=== PATIENT | female | born 1960 | race Asian ===

== ENCOUNTER → 2016-09-30 | Outpatient (CLI) | payer BC, OTHER ==
[~2016-09-30] MED LIST: FEXO180T PO; HYDR25TA4 PO; LORA10CA PO; SIMV20TA2 PO
[2016-09-30 11:49] LABS: KETONES,URINE NEGATIVE (NEGATIVE); LEUKOCYTE ESTERASE ,URINE TRACE (NEGATIVE); PH,URINE 6.5 (5.0-8.0)
[2016-09-30 11:52] LABS: ADD UA MICROSCOPIC YES
[2016-09-30 11:59] LABS: ADD URINE CULTURE YES
== END ==
LOC: LAB 09:40
PROVIDERS: ATTEND Legal Medicine
DX: R30.0 Dysuria (principal)
CPT/HCPCS: 81000-TC; 87086-TC; 87186-TC

== ENCOUNTER 2016-10-03 09:05 | Outpatient (CLI) | payer BC, OTHER | END 2016-10-03 23:59 | disposition home or self-care (01) | LOC: US 09:05 | PROVIDERS: ATTEND Family Medicine | DX: N92.0 Excessive and frequent menstruation with regular cycle (principal); R31.9 Hematuria, unspecified | CPT/HCPCS: 76770-TC; 76856-TC ==

== ENCOUNTER 2016-12-23 06:53 | Outpatient (CLI) | payer BC, OTHER | END 2016-12-23 23:59 | disposition home or self-care (01) | LOC: LAB 06:53 | PROVIDERS: ATTEND Legal Medicine | DX: Z75.3 Unavailability and inaccessibility of health-care facilities (principal) ==

== ENCOUNTER 2017-01-16 08:30 | Outpatient (CLI) | payer BC, OTHER | END 2017-01-16 23:59 | disposition home or self-care (01) | LOC: RAD 08:30 | PROVIDERS: ATTEND Otolaryngology | DX: E04.1 Nontoxic single thyroid nodule (principal); R13.14 Dysphagia, pharyngoesophageal phase | CPT/HCPCS: 76536-TC ==

== ENCOUNTER 2017-01-17 09:24 | Outpatient (CLI) | payer BC, OTHER | END 2017-01-17 23:59 | disposition home or self-care (01) | LOC: RAD 09:24 | PROVIDERS: ATTEND Otolaryngology | DX: R13.14 Dysphagia, pharyngoesophageal phase (principal) | CPT/HCPCS: 74230-TC ==

== ENCOUNTER 2017-02-26 09:59 | Emergency (ER) | payer BC, OTHER ==
[~2017-02-26] VITALS: Ht 162.6 cm; Wt 91.6 kg
[2017-02-26 10:02] VITALS: BP 149/101
== END 2017-02-26 10:38 | disposition home or self-care (01) ==
LOC: ER 10:00
DX: S09.90XA Unspecified injury of head, initial encounter (principal); S50.01XA Contusion of right elbow, initial encounter; M54.5 Low back pain; I10 Essential (primary) hypertension; W01.198A Fall on same level from slipping, tripping and stumbling with subsequent striking against other object, initial encounter; Y92.89 Other specified places as the place of occurrence of the external cause; Y93.89 Activity, other specified; Y99.8 Other external cause status
CPT/HCPCS: 99281; A4606; Z7610; Z7502

== ENCOUNTER 2017-08-03 09:29 | Outpatient (CLI) | payer BC ==
[2017-08-03 10:35] LABS: BASOPHILS % (AUTO) 0.5 % (0.0-2.0); EOSINOPHILS # (AUTO) 0.5 /CMM (0.0-0.7); EOSINOPHILS % (AUTO) 5.3 % (0.0-6.0); HEMATOCRIT 44 % (33-45); HEMOGLOBIN 13.4 g/dL (11.5-14.8); LYMPHOCYTES # (AUTO) 2.8 /CMM (0.8-4.8); LYMPHOCYTES % (AUTO) 28.6 % (20.0-44.0); MEAN CORPUSCULAR HEMOGLOBIN 20 PG (26.0-33.0); MEAN CORPUSCULAR HGB CONC 31 g/dl (31.0-36.0); MEAN CORPUSCULAR VOLUME 67 fL (82-100); MONOCYTES # (AUTO) 0.5 /CMM (0.1-1.30); MONOCYTES % (AUTO) 5.4 % (2.0-12.0); NEUTROPHILS # (AUTO) 5.8 /CMM (1.8-8.9); NEUTROPHILS % (AUTO) 60.2 % (43.0-81.0); PLATELET COUNT (AUTO) 207 /CMM (150-450); RDW COEFFICIENT OF VARIATION 16.1 (11.5-15.0); WHITE BLOOD COUNT (AUTO) 9.6 K/uL (4.3-11.0)
[2017-08-03 10:37] LABS: APPEARANCE,URINE CLEAR (CLEAR); BILIRUBIN,URINE NEGATIVE (NEGATIVE); BLOOD, URINE 2+ Ery/uL (NEGATIVE); COLOR,URINE YELLOW (YELLOW); KETONES,URINE NEGATIVE (NEGATIVE); LEUKOCYTE ESTERASE ,URINE TRACE (NEGATIVE); NITRITE, URINE POSITIVE (NEGATIVE); PROTEIN,URINE 2+ mg/dl (NEGATIVE); UGLUCOSE NEGATIVE (NEGATIVE); UROBILINOGEN,URINE 0.2 EU/dL (0.2)
[2017-08-03 10:45] LABS: BACTERIA,URINE Moderate /HPF (None Seen); SQUAMOUS EPITHELIAL CELL,UR Few /HPF (None Seen)
[2017-08-03 10:58] LABS: ALBUMIN 3.4 g/dL (3.4-5.0); BILIRUBIN,TOTAL 0.6 mg/dL (0.2-1.0); CALCIUM, SERUM 9.3 mg/dL (8.5-10.1); POTASSIUM 3.6 mmol/L (3.5-5.1); TOTAL PROTEIN, SERUM 8.2 g/dL (6.4-8.2)
[2017-08-03 11:00] LABS: FREE T4 (FREE THYROXINE) 1.02 ng/dL (0.76-1.46); URIC ACID 8.2 mg/dL (2.6-7.2)
[2017-08-03 11:50] LABS: EOSINOPHILS % (MANUAL) 5 % (0-4); LYMPHOCYTES % (MANUAL) 33 % (16-48); MONOCYTES % (MANUAL) 8 % (0-11.0); NEUTROPHILS % (MANUAL) 54 (42-76)
[2017-08-03 14:30] LABS: THYROID STIMULATING HORMONE 2.394 uIU/mL (0.358-3.74)
== END 2017-08-03 23:59 | disposition home or self-care (01) ==
LOC: LAB 09:29
PROVIDERS: ATTEND Legal Medicine
DX: M25.761 Osteophyte, right knee (principal); E03.9 Hypothyroidism, unspecified; I10 Essential (primary) hypertension; D64.9 Anemia, unspecified
CPT/HCPCS: 36415; 73564-TC; 80053-TC; 80061-TC; 81000-TC; 82306; 82728-TC; 82746; 83540-TC; 84439-TC; 84443-TC; 84550-TC; 85025-TC; 87086-TC; 87186-TC

== ENCOUNTER 2018-05-23 10:57 | Outpatient (CLI) | payer BC | END 2018-05-23 23:59 | disposition home or self-care (01) | LOC: RAD 10:57 | PROVIDERS: ATTEND Legal Medicine | DX: M25.512 Pain in left shoulder (principal); I10 Essential (primary) hypertension | CPT/HCPCS: 73030-TC ==

== ENCOUNTER 2018-08-24 10:33 | Outpatient (CLI) | payer BC ==
[2018-08-24 11:00] LABS: APPEARANCE,URINE SL CLOUDY (CLEAR); BILIRUBIN,URINE NEGATIVE (NEGATIVE); BLOOD, URINE 1+ Ery/uL (NEGATIVE); COLOR,URINE YELLOW (YELLOW); KETONES,URINE NEGATIVE (NEGATIVE); LEUKOCYTE ESTERASE ,URINE TRACE (NEGATIVE); NITRITE, URINE POSITIVE (NEGATIVE); PROTEIN,URINE 2+ mg/dl (NEGATIVE); UGLUCOSE NEGATIVE (NEGATIVE); UROBILINOGEN,URINE 0.2 EU/dL (0.2)
[2018-08-24 11:16] LABS: BACTERIA,URINE Many /HPF (None Seen); SQUAMOUS EPITHELIAL CELL,UR Few /HPF (None Seen)
== END 2018-08-24 23:59 | disposition home or self-care (01) ==
LOC: LAB 10:33
PROVIDERS: ATTEND Legal Medicine
DX: N39.0 Urinary tract infection, site not specified (principal)
CPT/HCPCS: 81000-TC; 87086-TC; 87186-TC

== ENCOUNTER 2018-09-21 07:38 | Outpatient (CLI) | payer BC | END 2018-09-21 23:59 | disposition home or self-care (01) | LOC: MRI 07:38 | PROVIDERS: ATTEND Student in an Organized Health Care Education/Training Program | DX: S83.242A Other tear of medial meniscus, current injury, left knee, initial encounter (principal); M22.42 Chondromalacia patellae, left knee; X58.XXXA Exposure to other specified factors, initial encounter; Y93.89 Activity, other specified; Y92.89 Other specified places as the place of occurrence of the external cause; Y99.8 Other external cause status | CPT/HCPCS: 73721-TC ==

== ENCOUNTER 2018-10-09 08:12 | Outpatient (CLI) | payer BC | END 2018-10-09 23:59 | disposition home or self-care (01) | LOC: CT 08:12 | DX: N39.0 Urinary tract infection, site not specified (principal); R31.0 Gross hematuria; K83.8 Other specified diseases of biliary tract; K42.9 Umbilical hernia without obstruction or gangrene; M47.817 Spondylosis without myelopathy or radiculopathy, lumbosacral region; Z90.49 Acquired absence of other specified parts of digestive tract | CPT/HCPCS: 88305-TC; 88312-TC ==

== ENCOUNTER 2019-01-15 10:40 | Outpatient (CLI) | payer BC | END 2019-01-15 23:59 | disposition home or self-care (01) | LOC: WOU 10:40 | PROVIDERS: ATTEND Podiatrist Foot & Ankle Surgery | DX: S93.402D Sprain of unspecified ligament of left ankle, subsequent encounter (principal); X58.XXXD Exposure to other specified factors, subsequent encounter; R60.0 Localized edema | CPT/HCPCS: G0463 ==

== ENCOUNTER 2019-01-23 13:00 | Outpatient (CLI) | payer BC | END 2019-01-23 23:59 | disposition home or self-care (01) | LOC: WOU 13:00 | PROVIDERS: ATTEND Podiatrist Foot & Ankle Surgery | DX: S93.402D Sprain of unspecified ligament of left ankle, subsequent encounter (principal); X58.XXXD Exposure to other specified factors, subsequent encounter; R60.0 Localized edema; I10 Essential (primary) hypertension; M19.90 Unspecified osteoarthritis, unspecified site | CPT/HCPCS: G0463 ==

== ENCOUNTER 2019-06-07 10:45 | Outpatient (CLI) | payer BC | END 2019-06-07 23:59 | disposition home or self-care (01) | LOC: WOU 10:45 | PROVIDERS: ATTEND Podiatrist Foot & Ankle Surgery | DX: L03.115 Cellulitis of right lower limb (principal); R60.0 Localized edema; M77.8 Other enthesopathies, not elsewhere classified; M76.71 Peroneal tendinitis, right leg | CPT/HCPCS: 73630-TC; G0463 ==

== ENCOUNTER 2019-06-11 08:45 | Outpatient (CLI) | payer BC | END 2019-06-11 23:59 | disposition home or self-care (01) | LOC: WOU 08:45 | PROVIDERS: ATTEND Podiatrist Foot & Ankle Surgery | DX: L84 Corns and callosities (principal); Q66.229 Congenital metatarsus adductus, unspecified foot | CPT/HCPCS: G0463 ==

== ENCOUNTER 2019-08-15 08:21 | Outpatient (CLI) | payer BC ==
[2019-08-15 09:56] LABS: BASOPHILS # (AUTO) 0.1 /CMM (0.0-0.2); BASOPHILS % (AUTO) 0.7 % (0.0-2.0); EOSINOPHILS % (AUTO) 3.2 % (0.0-6.0); HEMATOCRIT 45 % (33-45); LYMPHOCYTES # (AUTO) 2.6 /CMM (0.8-4.8); LYMPHOCYTES % (AUTO) 28.6 % (20.0-44.0); MEAN CORPUSCULAR HGB CONC 31 g/dl (31.0-36.0); MEAN CORPUSCULAR VOLUME 67 fL (82-100); MONOCYTES # (AUTO) 0.6 /CMM (0.1-1.30); MONOCYTES % (AUTO) 6.6 % (2.0-12.0); NEUTROPHILS # (AUTO) 5.6 /CMM (1.8-8.9); NEUTROPHILS % (AUTO) 60.9 % (43.0-81.0); PLATELET COUNT (AUTO) 221 /CMM (150-450); RED BLOOD CELL COUNT(AUTO) 6.69 MIL/uL (4.0-5.2); WHITE BLOOD COUNT (AUTO) 9.3 K/uL (4.3-11.0)
[2019-08-15 09:58] LABS: APPEARANCE,URINE CLEAR (CLEAR); BILIRUBIN,URINE NEGATIVE (NEGATIVE); BLOOD, URINE TRACE-INTA Ery/uL (NEGATIVE); COLOR,URINE YELLOW (YELLOW); KETONES,URINE NEGATIVE (NEGATIVE); LEUKOCYTE ESTERASE ,URINE NEGATIVE (NEGATIVE); NITRITE, URINE NEGATIVE (NEGATIVE); PROTEIN,URINE >=300 mg/dl (NEGATIVE); UGLUCOSE NEGATIVE (NEGATIVE); UROBILINOGEN,URINE 0.2 EU/dL (0.2)
[2019-08-15 10:07] LABS: BACTERIA,URINE None seen /HPF (None Seen); RBC,URINE NONE SEEN /HPF (0-2); SQUAMOUS EPITHELIAL CELL,UR None Seen /HPF (None Seen); WBC,URINE NONE SEEN /HPF (0-3)
[2019-08-15 10:08] LABS: ALBUMIN 3.4 g/dL (3.4-5.0); BILIRUBIN,TOTAL 0.6 mg/dL (0.2-1.0); CALCIUM, SERUM 9.4 mg/dL (8.5-10.1); CREATININE 0.9 mg/dL (0.6-1.3); POTASSIUM 3.5 mmol/L (3.5-5.1); TOTAL PROTEIN, SERUM 8.3 g/dL (6.4-8.2)
[2019-08-15 10:18] LABS: THYROID STIMULATING HORMONE 1.794 uIU/mL (0.358-3.74); URIC ACID 8.3 mg/dL (2.6-7.2)
[2019-08-16 08:06] LABS: FOLIC ACID 13.1 ng/mL (>3.0)
== END 2019-08-15 23:59 | disposition home or self-care (01) ==
LOC: LAB 08:21
PROVIDERS: ATTEND Legal Medicine
DX: Z00.00 Encounter for general adult medical examination without abnormal findings (principal); I70.0 Atherosclerosis of aorta; E11.9 Type 2 diabetes mellitus without complications; I10 Essential (primary) hypertension; E03.9 Hypothyroidism, unspecified; D64.9 Anemia, unspecified; E55.9 Vitamin D deficiency, unspecified
CPT/HCPCS: 36415; 71046; 80053-TC; 80061-TC; 81000-TC; 82306; 82728-TC; 83540-TC; 84439-TC; 84443-TC; 84550-TC; 85025-TC

== ENCOUNTER 2020-08-19 07:49 | Emergency (ER) | payer BC, OTHER ==
[~2020-08-19] VITALS: Ht 162.6 cm; Wt 91.6 kg
[2020-08-19 08:02] VITALS: BP 156/100
--- NOTE | 2020-08-19 09:23 | NUR ---
COVID PCR SWAB IN BUT PATIENT IS NO LONGER AVAILABLE
== END 2020-08-19 09:24 | disposition left against medical advice (07) ==
LOC: ER 07:54
DX: R05 Cough (principal); Z20.828 Contact with and (suspected) exposure to other viral communicable diseases; I10 Essential (primary) hypertension; J45.909 Unspecified asthma, uncomplicated; Z90.49 Acquired absence of other specified parts of digestive tract; Z79.899 Other long term (current) drug therapy
CPT/HCPCS: 99283; C9803; U0003

== ENCOUNTER 2020-08-19 08:16 | Outpatient (CLI) | payer BC ==
[2020-08-19 10:47] LABS: BASOPHILS # (AUTO) 0.1 /CMM (0.0-0.2); BASOPHILS % (AUTO) 0.9 % (0.0-2.0); EOSINOPHILS % (AUTO) 3.9 % (0.0-6.0); HEMATOCRIT 44 % (33-45); HEMOGLOBIN 13.6 g/dL (11.5-14.8); LYMPHOCYTES # (AUTO) 2.6 /CMM (0.8-4.8); LYMPHOCYTES % (AUTO) 30.4 % (20.0-44.0); MEAN CORPUSCULAR HGB CONC 31 g/dl (31.0-36.0); MEAN CORPUSCULAR VOLUME 68 fL (82-100); MONOCYTES # (AUTO) 0.6 /CMM (0.1-1.30); MONOCYTES % (AUTO) 7.4 % (2.0-12.0); NEUTROPHILS # (AUTO) 4.8 /CMM (1.8-8.9); NEUTROPHILS % (AUTO) 57.4 % (43.0-81.0); PLATELET COUNT (AUTO) 221 /CMM (150-450); RED BLOOD CELL COUNT(AUTO) 6.51 MIL/uL (4.0-5.2); WHITE BLOOD COUNT (AUTO) 8.4 K/uL (4.3-11.0)
[2020-08-19 11:12] LABS: BILIRUBIN,URINE NEGATIVE (NEGATIVE); BLOOD, URINE MODERATE Ery/uL (NEGATIVE); COLOR,URINE YELLOW (YELLOW); LEUKOCYTE ESTERASE ,URINE NEGATIVE (NEGATIVE); NITRITE, URINE NEGATIVE (NEGATIVE); PROTEIN,URINE 100 mg/dl (NEGATIVE); UGLUCOSE NEGATIVE (NEGATIVE); UROBILINOGEN,URINE 0.2 EU/dL (0.2)
[2020-08-19 12:04] LABS: WBC,URINE 0-2 /HPF (0-3)
[2020-08-19 12:05] LABS: BACTERIA,URINE None seen /HPF (None Seen); SQUAMOUS EPITHELIAL CELL,UR Few /HPF (None Seen)
[2020-08-19 14:51] LABS: ALBUMIN 3.5 g/dL (3.4-5.0); BILIRUBIN,TOTAL 0.7 mg/dL (0.2-1.0); CALCIUM, SERUM 9.6 mg/dL (8.5-10.1); POTASSIUM 3.6 mmol/L (3.5-5.1)
[2020-08-19 22:49] LABS: THYROID STIMULATING HORMONE 2.722 uIU/mL (0.358-3.74)
[2020-08-20 08:04] LABS: FOLIC ACID 9.3 ng/mL (>3.0)
== END 2020-08-19 23:59 | disposition home or self-care (01) ==
LOC: RAD 08:16
PROVIDERS: ATTEND Legal Medicine
DX: S22.009A Unspecified fracture of unspecified thoracic vertebra, initial encounter for closed fracture (principal); I10 Essential (primary) hypertension; E11.9 Type 2 diabetes mellitus without complications; E03.9 Hypothyroidism, unspecified; D64.9 Anemia, unspecified; E55.9 Vitamin D deficiency, unspecified; M47.814 Spondylosis without myelopathy or radiculopathy, thoracic region; Z00.00 Encounter for general adult medical examination without abnormal findings; X58.XXXA Exposure to other specified factors, initial encounter; Y93.89 Activity, other specified; Y92.89 Other specified places as the place of occurrence of the external cause; Y99.8 Other external cause status
CPT/HCPCS: 36415; 71046; 80053-TC; 80061-TC; 81001; 82306; 82728-TC; 83540-TC; 84439-TC; 84443-TC; 84550-TC; 85025-TC

== ENCOUNTER 2020-11-26 05:43 | Day surgery (SDC) | payer BC ==
[2020-11-26] VITALS (7 sets, daily range): BP systolic 113–143; BP diastolic 73–85
[~2020-11-26] VITALS: Ht 160 cm; Wt 94.8 kg
[2020-11-26] MEDS ORDERED: IODIXANOL 150 ML IV ONE (05:53)
[2020-11-26] MEDS ORDERED: IV SET PRIMARY PUMP SET 1 EA INFUS.SET MC ONE (05:53)
[2020-11-26] MEDS ORDERED: IV NS 0.9% 1,000 ML ONE (05:53)
[2020-11-26] MEDS ORDERED: LIDOCAINE HCL/MPF 1% 30 ML VIAL IJ ONE (05:53)
[2020-11-26 06:19] LABS: BASOPHILS # (AUTO) 0.1 /CMM (0.0-0.2); BASOPHILS % (AUTO) 0.6 % (0.0-2.0); EOSINOPHILS % (AUTO) 0.1 % (0.0-6.0); HEMATOCRIT 47 % (33-45); HEMOGLOBIN 14.7 g/dL (11.5-14.8); LYMPHOCYTES # (AUTO) 1.3 /CMM (0.8-4.8); LYMPHOCYTES % (AUTO) 13.4 % (20.0-44.0); MEAN CORPUSCULAR HGB CONC 31 g/dl (31.0-36.0); MEAN CORPUSCULAR VOLUME 67 fL (82-100); MONOCYTES # (AUTO) 0.1 /CMM (0.1-1.30); MONOCYTES % (AUTO) 0.7 % (2.0-12.0); NEUTROPHILS % (AUTO) 85.2 % (43.0-81.0); PLATELET COUNT (AUTO) 215 /CMM (150-450); RED BLOOD CELL COUNT(AUTO) 6.97 MIL/uL (4.0-5.2); WHITE BLOOD COUNT (AUTO) 9.4 K/uL (4.3-11.0)
[2020-11-26 06:28] LABS: CALCIUM, SERUM 9.2 mg/dL (8.5-10.1); CREATININE 1.1 mg/dL (0.6-1.3); POTASSIUM 3.2 mmol/L (3.5-5.1)
[2020-11-26 06:34] LABS: ALBUMIN 3.3 g/dL (3.4-5.0); BILIRUBIN,TOTAL 0.4 mg/dL (0.2-1.0); TOTAL PROTEIN, SERUM 8.8 g/dL (6.4-8.2)
[2020-11-26] MEDS ORDERED: FENTANYL PF 100MCG/2ML AMPUL ONE (07:21)
[2020-11-26] MEDS ORDERED: MIDAZOLAM HCL 2 MG/2ML VIAL ONE (07:22)
[2020-11-26] MEDS ORDERED: NITROGLYCERIN ICAR 1,000 MCG/10 ML VIAL ICAR ONE (07:26)
--- NOTE | 2020-11-26 08:44 | NUR ---
RN NOTES PT TRANSFERRED TO UNIT VIA STRETCHER FROM CARDIAC LAB S/P CARDIAC CATHETERIZATION BY DR MONTOYA ACCOMPANIED BY URSULA NOVOA AND JOSH. PT AWAKE, A/O X4. ABLE TO MAKE NEEDS KNOWN, DENIES PAIN OR ANY DISCOMFORTS AT THIS TIME. PT WITH TR BAND IN PLACE TO RIGHT WRIST WITH NO S/S OR ACTIVE BLEEDING NOTED AT SITE. ON ROOM AIR, TOLERATING WELL WITH SP02 OF 97% NOTED TAKEN FROM RIGHT INDEX FINGER VIA PULSE OXIMETER. V/S TAKEN, STABLE AND RECORDED. PT WITH IVF OF NS RUNNING AT 100ML/HR TO RFA G#20, NO S/S OF INFILTRATION AT SITE NOTED. SAFETY MEASURES INITIATED: BED PLACED IN LOWEST LOCKED POSITION W/ SR UP X2. CALL LIGHT WITHIN EASY REACH. WILL CONTINUE TO MONITOR.
[2020-11-26] MEDS ORDERED: LISINOPRIL (20MG) 20 MG TABLET PO SCH (09:00)
--- NOTE | 2020-11-26 09:40 | NUR ---
RN NOTES URSULA NOVOA CAME TO UNIT. PT'S V/S TAKEN, STABLE AND RECORDED. SP02 TAKEN TO RIGHT INDEX FINGER AND WAS 98%. CMS WNL. REMOVED 4ML OF AIR FROM RIGHT WRIST TR BAND, NO BLEEDING NOTED. WILL CONTINUE TO MONITOR.
--- NOTE | 2020-11-26 09:47 | NUR ---
RN NOTES PT IN BED AWAKE AND RESTING AT MODERTAE HIGH BACKREST POSITION. V/S TAKEN, STABLE AND RECORDED. SP02 TAKEN TO RIGHT INDEX FINGER AND WAS 98%. CMS WNL. REMOVED 3ML OF AIR FROM RIGHT WRIST TR BAND, NO BLEEDING NOTED. WILL CONTINUE TO MONITOR
--- NOTE | 2020-11-26 10:03 | NUR ---
RN NOTES PT IN BED AWAKE, A/O X4. V/S TAKEN, STABLE AND RECORDED. SP02 TAKEN TO RIGHT INDEX FINGER AND WAS 98%. V./S STABLE AND RECORDED. CMS WNL. REMOVED 3ML OF AIR FROM RIGHT WRIST TR BAND, NO BLEEDING NOTED. WILL CONTINUE TO MONITOR
[2020-11-26 10:13] LABS: LYMPHOCYTES % (MANUAL) 17 % (16-48); NEUTROPHILS % (MANUAL) 83 (42-76)
--- NOTE | 2020-11-26 10:17 | NUR ---
RN NOTES PT IN BED AWAKE, A/O X4. V/S TAKEN, STABLE AND RECORDED. SP02 TAKEN TO RIGHT INDEX FINGER AND WAS 98%. V./S STABLE AND RECORDED. CMS WNL. 3ML OF AIR FROM RIGHT WRIST TR BAND, NO BLEEDING NOTED. WILL CONTINUE TO MONITOR
--- NOTE | 2020-11-26 10:35 | NUR ---
RN NOTES PT AWAKE AND RESTING IN BED AT THIS TIME. NO C/O PAIN VOICED SINCE ARRIVAL TO UNIT. V/S TAKEN, STABLE AND RECORDED. O2 SAT TAKEN TO RIGHT THUMB AND WAS 98%. CMS WNL. 2ML OF AIR FROM RIGHT WRIST TR BAND REMOVED THIS TIME WITH TOTAL OF 15ML REMOVED NOW. NO BLEEDING NOTED. TR BAND REMOVED AND DRY DRESSING APPLIED TO ACCESS SITE. WILL CONTINUE TO MONITOR
--- NOTE | 2020-11-26 14:03 | NUR ---
RN DISCHARGED NOTES PT DISCHARGED HOME IN STABLE CONDITION. A/O X4. ABLE TO VERBALIZED NEEDS. V/S TAKEN, STABLE AND RECORDED. NO S/S OR ACTIVE BLEEDING ON CARDIAC CATH INSERTION SITE ON RIGHT WRIST NOTED. IV ACCESS ON RFA REMOVED, DRY PRESSURE DRESSING APPLIED TO SITE. HEALTH TEACHINGS GIVEN TO PT AND VERBALIZED UNDERSTANDING. EXIT CARE FOLDER HANDED TO PT. PT LEFT UNIT AT 1335 AMBULATORY ACCOMPANIED BY SURY PENALOZA TO [facility]. PT'S WILL DRIVE PT'S HOME. MD AND CHARGE NURSE AWARE OF DISCHARGE.
[2020-11-26] MEDS ORDERED: ATORVASTATIN 40 MG TABLET PO SCH (22:00)
== END 2020-11-26 13:40 | disposition home or self-care (01) ==
LOC: CATHLAB 05:43
PROVIDERS: ATTEND Internal Medicine
DX: R07.9 Chest pain, unspecified (principal); R06.02 Shortness of breath; I77.1 Stricture of artery
CPT/HCPCS: 36415; 80053; 85025; 85610; 85730; 87811; 93458; 99152; C1887; C9803; J1644; J2250; J3010; J3490; Q9967; G0500

== ENCOUNTER 2021-02-25 08:04 | Emergency (ER) | payer BC, OTHER ==
[~2021-02-25] VITALS: Ht 167.6 cm; Wt 90.7 kg
[~2021-02-25 08:04] MED LIST changes: -SIMV20TA2 PO
--- NOTE | 2021-02-25 08:24 | NUR ---
dr hoffman at bedside for eval.
[2021-02-25] MEDS ORDERED: MORPHINE SULFATE INJ 4 MG/ML DISP.SYRIN ONE (08:26)
[2021-02-25] MEDS ORDERED: ONDANSETRON HCL/PF 4 MG/2 ML VIAL ONE (08:26)
[2021-02-25] MEDS ORDERED: KETOROLAC TROMETHAMINE 15 MG/ML VIAL ONE (08:26)
[2021-02-25] MEDS ORDERED: MORPHINE SULFATE INJ 2 MG/ML DISP.SYRIN IV ONE (08:30)
[2021-02-25] MEDS ORDERED: IV NS 0.9% 1,000 ML BAG IV ONE (08:30)
[2021-02-25] MEDS ORDERED: KETOROLAC TROMETHAMINE INJ 30 MG/ML VIAL IV ONE (08:30)
[2021-02-25] MEDS ORDERED: ONDANSETRON HCL/PF 4 MG/2 ML VIAL IV ONE (08:30)
--- NOTE | 2021-02-25 08:30 | NUR ---
iv line started blood drawn and sent to lab.
--- NOTE | 2021-02-25 08:53 | NUR ---
pt to radiology for abdominal ct scan via [facility].
[2021-02-25 08:54] LABS: CALCIUM, SERUM 9.5 mg/dL (8.5-10.1); CREATININE 1.3 mg/dL (0.6-1.3); POTASSIUM 4.1 mmol/L (3.5-5.1)
[2021-02-25 09:02] LABS: BILIRUBIN,URINE NEGATIVE (NEGATIVE); LEUKOCYTE ESTERASE ,URINE NEGATIVE (NEGATIVE); NITRITE, URINE NEGATIVE (NEGATIVE); PH,URINE 5.5 (5.0-8.0); PROTEIN,URINE 30 mg/dl (NEGATIVE); UGLUCOSE NEGATIVE (NEGATIVE); UROBILINOGEN,URINE 0.2 EU/dL (0.2)
[2021-02-25 09:04] LABS: ALBUMIN 3.6 g/dL (3.4-5.0); BILIRUBIN,DIRECT 0.1 mg/dL (0.0-0.2); BILIRUBIN,TOTAL 0.7 mg/dL (0.2-1.0); TOTAL PROTEIN, SERUM 8.7 g/dL (6.4-8.2)
[2021-02-25 09:07] LABS: COLOR,URINE STRAW (YELLOW)
[2021-02-25 09:33] LABS: BACTERIA,URINE Many /HPF (None Seen); SQUAMOUS EPITHELIAL CELL,UR Few /HPF (None Seen)
[2021-02-25] MEDS ORDERED: NAPR-1009 PO (10:16)
[2021-02-25] MEDS ORDERED: CYCL5TAB PO (10:16)
[2021-02-25] MEDS ORDERED: FAMOTIDINE/PF INJ 20 MG/2 ML VIAL IV ONE ×2 (10:30)
[2021-02-25 10:57] VITALS: BP 145/86
--- NOTE | 2021-02-25 10:57 | NUR ---
Patient discharged to home in stable condition. Written and verbal after care instructions given. Patient verbalizes understanding of instruction.IV removed. Catheter intact and site benign. Pressure and 4x4 applied to site. No bleeding noted.
== END 2021-02-25 10:58 | disposition home or self-care (01) ==
LOC: ER 08:35
DX: M54.9 Dorsalgia, unspecified (principal); R10.84 Generalized abdominal pain; I10 Essential (primary) hypertension; Z90.49 Acquired absence of other specified parts of digestive tract; Z98.890 Other specified postprocedural states; Z91.048 Other nonmedicinal substance allergy status; Z79.899 Other long term (current) drug therapy
CPT/HCPCS: 36415; 71045; 74176; 80048; 80076; 81001; 83690; 87086; 96361; 96374; 96375; 99285; J1885; J2270; J2405; J3490; J7030

== ENCOUNTER → 2021-03-12 | Outpatient (CLI) | payer BC, OTHER ==
[~2021-03-12] MED LIST changes: +CYCL5TAB PO; +NAPR-1009 PO
== END | disposition home or self-care (01) ==
LOC: MRI 08:19
PROVIDERS: ATTEND Legal Medicine
DX: M47.816 Spondylosis without myelopathy or radiculopathy, lumbar region (principal); M51.36 Other intervertebral disc degeneration, lumbar region; M51.26 Other intervertebral disc displacement, lumbar region
CPT/HCPCS: 72148-TC

== ENCOUNTER 2021-03-25 08:10 | Outpatient (CLI) | payer BC, OTHER ==
[2021-03-25 09:42] LABS: ALBUMIN 3.6 g/dL (3.4-5.0); BILIRUBIN,TOTAL 0.6 mg/dL (0.2-1.0); CREATININE 1.3 mg/dL (0.6-1.3); POTASSIUM 3.9 mmol/L (3.5-5.1); TOTAL PROTEIN, SERUM 8.3 g/dL (6.4-8.2)
== END 2021-03-25 23:59 | disposition home or self-care (01) ==
LOC: LAB 08:10
PROVIDERS: ATTEND Legal Medicine
DX: R53.1 Weakness (principal)
CPT/HCPCS: 36415; 80053-TC

== ENCOUNTER 2021-03-26 10:33 | Outpatient (CLI) | payer BC, OTHER ==
[2021-03-26] MEDS ORDERED: GADOTERATE MEGLUMINE 5 MMOL/10 ML VIAL IV ONE (10:34)
== END 2021-03-26 23:59 | disposition home or self-care (01) ==
LOC: MRI 10:33
PROVIDERS: ATTEND Legal Medicine
DX: M47.816 Spondylosis without myelopathy or radiculopathy, lumbar region (principal); M51.27 Other intervertebral disc displacement, lumbosacral region; M48.07 Spinal stenosis, lumbosacral region
CPT/HCPCS: 72158; A9575

== ENCOUNTER 2021-10-19 08:30 | Outpatient (CLI) | payer BC, OTHER ==
[2021-10-19 09:07] LABS: BASOPHILS # (AUTO) 0.1 K/uL (0.0-0.2); EOSINOPHILS % (AUTO) 3.8 % (0.0-6.0); HEMATOCRIT 37 % (33-45); HEMOGLOBIN 11.6 g/dL (11.5-14.8); LYMPHOCYTES % (AUTO) 25.7 % (20.0-44.0); MEAN CORPUSCULAR HGB CONC 31 g/dl (31.0-36.0); MEAN CORPUSCULAR VOLUME 66 fL (82-100); MONOCYTES # (AUTO) 0.8 K/uL (0.1-1.30); MONOCYTES % (AUTO) 6.9 % (2.0-12.0); NEUTROPHILS # (AUTO) 7.2 K/uL (1.8-8.9); NEUTROPHILS % (AUTO) 62.6 % (43.0-81.0); PLATELET COUNT (AUTO) 203 K/uL (150-450); RED BLOOD CELL COUNT(AUTO) 5.66 MIL/uL (4.0-5.2); WHITE BLOOD COUNT (AUTO) 11.6 K/uL (4.3-11.0)
[2021-10-19 09:46] LABS: C-REACTIVE PROTEIN 0.8 mg/dL (0.0-0.9); FREE T4 (FREE THYROXINE) 0.93 ng/dL (0.76-1.46); THYROID STIMULATING HORMONE 2.669 uIU/mL (0.358-3.74)
[2021-10-19 09:55] LABS: ALBUMIN 3.5 g/dL (3.4-5.0); BILIRUBIN,TOTAL 0.4 mg/dL (0.2-1.0); CALCIUM, SERUM 9.8 mg/dL (8.5-10.1); CREATININE 1.3 mg/dL (0.6-1.3); POTASSIUM 3.7 mmol/L (3.5-5.1); TOTAL PROTEIN, SERUM 8.5 g/dL (6.4-8.2)
[2021-10-19 10:22] LABS: BILIRUBIN,URINE NEGATIVE (NEGATIVE); COLOR,URINE YELLOW (YELLOW); LEUKOCYTE ESTERASE ,URINE NEGATIVE (NEGATIVE); NITRITE, URINE NEGATIVE (NEGATIVE); PROTEIN,URINE 30 mg/dl (NEGATIVE); UGLUCOSE NEGATIVE (NEGATIVE); UROBILINOGEN,URINE 0.2 EU/dL (0.2)
[2021-10-19 10:28] LABS: BACTERIA,URINE None seen /HPF (None Seen); SQUAMOUS EPITHELIAL CELL,UR Few /HPF (None Seen)
== END 2021-10-19 23:59 | disposition home or self-care (01) ==
LOC: LAB 08:30
PROVIDERS: ATTEND Legal Medicine
DX: E11.22 Type 2 diabetes mellitus with diabetic chronic kidney disease (principal); N18.9 Chronic kidney disease, unspecified; E78.5 Hyperlipidemia, unspecified; E03.9 Hypothyroidism, unspecified; D64.9 Anemia, unspecified; Z00.00 Encounter for general adult medical examination without abnormal findings
CPT/HCPCS: 36415; 80053-TC; 80061-TC; 81001; 82306; 82607-TC; 82728-TC; 83540-TC; 84439-TC; 84443-TC; 84550-TC; 85025-TC; 85652-TC; 86140-TC

== ENCOUNTER 2021-10-27 11:58 | Outpatient (CLI) | payer BC, OTHER | END 2021-10-27 23:59 | disposition home or self-care (01) | LOC: MRI 11:58 | PROVIDERS: ATTEND Legal Medicine | DX: M17.12 Unilateral primary osteoarthritis, left knee (principal); M25.462 Effusion, left knee | CPT/HCPCS: 73721-TC ==

== ENCOUNTER 2022-02-25 09:00 | Outpatient (CLI) | payer BC | END 2022-02-25 23:59 | disposition home or self-care (01) | LOC: WOU 09:00 | PROVIDERS: ATTEND Podiatrist Foot & Ankle Surgery | DX: M76.822 Posterior tibial tendinitis, left leg (principal); M72.2 Plantar fascial fibromatosis; M79.672 Pain in left foot; I10 Essential (primary) hypertension | CPT/HCPCS: 73610-TC; 73630-TC; G0463 ==

== ENCOUNTER 2022-03-30 14:15 | Outpatient (CLI) | payer BC ==
[2022-03-30] MEDS ORDERED: ETHYL CHLORIDE SPRAY 1 EA BOTTLE TP ONE (14:16)
[2022-03-30] MEDS ORDERED: BUPIVACAINE 0.5 % PF 150 MG/30 ML VIAL IJ ONE (14:16)
[2022-03-30] MEDS ORDERED: TRIAMCINOLONE ACETONIDE SUSP 40 MG/ML VIAL IM ONE (14:16)
== END 2022-03-30 23:59 | disposition home or self-care (01) ==
LOC: WOU 14:15
PROVIDERS: ATTEND Podiatrist Foot & Ankle Surgery
DX: M72.2 Plantar fascial fibromatosis (principal); M76.822 Posterior tibial tendinitis, left leg
CPT/HCPCS: 20550; J3490; J3301

== ENCOUNTER 2022-04-20 09:33 | Emergency (ER) | payer BC, OTHER ==
[~2022-04-20] VITALS: Ht 165.1 cm; Wt 72.6 kg
--- NOTE | 2022-04-20 09:46 | NUR ---
DR WHELAN AT THE BEDSIDE
[2022-04-20 10:26] LABS: BASOPHILS # (AUTO) 0.1 K/uL (0.0-0.2); BASOPHILS % (AUTO) 1.1 % (0.0-2.0); EOSINOPHILS % (AUTO) 2.4 % (0.0-6.0); HEMATOCRIT 40 % (33-45); HEMOGLOBIN 12.3 g/dL (11.5-14.8); LYMPHOCYTES # (AUTO) 2.1 K/uL (0.8-4.8); LYMPHOCYTES % (AUTO) 18.4 % (20.0-44.0); MEAN CORPUSCULAR HGB CONC 31 g/dl (31.0-36.0); MEAN CORPUSCULAR VOLUME 66 fL (82-100); MONOCYTES # (AUTO) 0.6 K/uL (0.1-1.30); MONOCYTES % (AUTO) 5.1 % (2.0-12.0); NEUTROPHILS # (AUTO) 8.4 K/uL (1.8-8.9); PLATELET COUNT (AUTO) 222 K/uL (150-450); RED BLOOD CELL COUNT(AUTO) 6.05 MIL/uL (4.0-5.2); WHITE BLOOD COUNT (AUTO) 11.5 K/uL (4.3-11.0)
[2022-04-20 10:40] LABS: CREATININE 1.2 mg/dL (0.6-1.3); POTASSIUM 3.6 mmol/L (3.5-5.1)
[2022-04-20 11:01] LABS: BILIRUBIN,URINE NEGATIVE (NEGATIVE); COLOR,URINE YELLOW (YELLOW); LEUKOCYTE ESTERASE ,URINE TRACE (NEGATIVE); NITRITE, URINE POSITIVE (NEGATIVE); PROTEIN,URINE 30 mg/dl (NEGATIVE); UGLUCOSE NEGATIVE (NEGATIVE); UROBILINOGEN,URINE 0.2 EU/dL (0.2)
[2022-04-20 11:44] LABS: BACTERIA,URINE Many /HPF (None Seen); SQUAMOUS EPITHELIAL CELL,UR Few /HPF (None Seen)
[2022-04-20] MEDS ORDERED: CEPH500C2 PO (11:56)
[2022-04-20] MEDS ORDERED: IBUP-1955 PO (11:56)
[2022-04-20] MEDS ORDERED: IBUPROFEN 600 MG TABLET PO ONE (12:00)
[2022-04-20] MEDS ORDERED: IBUPROFEN 600 MG TABLET ONE (12:01)
--- NOTE | 2022-04-20 12:09 | NUR ---
MD ordered Motrin , pt refused the medication, encouraged to go home and get rest, PT D/C ambulated on own , steady gait, stable
[2022-04-20 12:12] VITALS: BP 154/85
== END 2022-04-20 12:12 | disposition home or self-care (01) ==
LOC: ER 09:35
DX: N30.90 Cystitis, unspecified without hematuria (principal); M54.9 Dorsalgia, unspecified; I10 Essential (primary) hypertension; Z90.49 Acquired absence of other specified parts of digestive tract; Z98.890 Other specified postprocedural states; Z88.8 Allergy status to other drugs, medicaments and biological substances; Z79.899 Other long term (current) drug therapy
CPT/HCPCS: 36415; 80048-TC; 81001; 85025-TC; 87086-TC; 87186-TC

== ENCOUNTER 2022-08-16 08:13 | Outpatient (CLI) | payer BC, OTHER ==
[~2022-08-16 08:13] MED LIST changes: +CEPH500C2 PO; +IBUP-1955 PO
[2022-08-16 09:24] LABS: BILIRUBIN,URINE NEGATIVE (NEGATIVE); COLOR,URINE YELLOW (YELLOW); LEUKOCYTE ESTERASE ,URINE TRACE (NEGATIVE); NITRITE, URINE POSITIVE (NEGATIVE); PROTEIN,URINE 1+ mg/dl (NEGATIVE); UGLUCOSE NEGATIVE (NEGATIVE); UROBILINOGEN,URINE 0.2 EU/dL (0.2)
[2022-08-16 09:54] LABS: THYROID STIMULATING HORMONE 2.916 uIU/mL (0.358-3.74); URIC ACID 8.9 mg/dL (2.6-7.2)
[2022-08-16 10:09] LABS: BASOPHILS # (AUTO) 0.1 K/uL (0.0-0.2); BASOPHILS % (AUTO) 0.6 % (0.0-2.0); EOSINOPHILS % (AUTO) 1.9 % (0.0-6.0); HEMATOCRIT 40 % (33-45); HEMOGLOBIN 12.2 g/dL (11.5-14.8); LYMPHOCYTES # (AUTO) 1.9 K/uL (0.8-4.8); LYMPHOCYTES % (AUTO) 14.1 % (20.0-44.0); MEAN CORPUSCULAR HGB CONC 31 g/dl (31.0-36.0); MEAN CORPUSCULAR VOLUME 66 fL (82-100); MONOCYTES # (AUTO) 0.8 K/uL (0.1-1.30); MONOCYTES % (AUTO) 5.9 % (2.0-12.0); NEUTROPHILS # (AUTO) 10.7 K/uL (1.8-8.9); NEUTROPHILS % (AUTO) 77.5 % (43.0-81.0); PLATELET COUNT (AUTO) 220 K/uL (150-450); WHITE BLOOD COUNT (AUTO) 13.8 K/uL (4.3-11.0)
[2022-08-16 10:22] LABS: ALBUMIN 3.5 g/dL (3.4-5.0); BILIRUBIN,TOTAL 0.4 mg/dL (0.2-1.0); CALCIUM, SERUM 8.8 mg/dL (8.5-10.1); CREATININE 1.2 mg/dL (0.6-1.3); POTASSIUM 3.6 mmol/L (3.5-5.1); TOTAL PROTEIN, SERUM 8.4 g/dL (6.4-8.2)
[2022-08-16 10:40] LABS: BACTERIA,URINE Moderate /HPF (None Seen)
[2022-08-16 14:34] LABS: BAND % (MANUAL) 1 % (0.0-5.0); EOSINOPHILS % (MANUAL) 1 % (0-4); LYMPHOCYTES % (MANUAL) 19 % (16-48); MONOCYTES % (MANUAL) 7 % (0-11.0); NEUTROPHILS % (MANUAL) 72 (42-76)
== END 2022-08-16 23:59 | disposition home or self-care (01) ==
LOC: LAB 08:13
PROVIDERS: ATTEND Legal Medicine
DX: Z00.00 Encounter for general adult medical examination without abnormal findings (principal); E78.00 Pure hypercholesterolemia, unspecified; E03.9 Hypothyroidism, unspecified; D64.9 Anemia, unspecified; E11.9 Type 2 diabetes mellitus without complications; E55.9 Vitamin D deficiency, unspecified
CPT/HCPCS: 36415; 80053-TC; 80061-TC; 81001; 82306; 82607-TC; 82728-TC; 83540-TC; 84443-TC; 84550-TC; 85025-TC; 87086-TC

== ENCOUNTER 2023-12-28 16:32 | Emergency (ER) | payer BC, OTHER ==
[~2023-12-28] VITALS: Ht 162.6 cm; Wt 93.9 kg
[2023-12-28] MEDS ORDERED: IBUPROFEN 600 MG TABLET ONE (16:58)
[2023-12-28] MEDS: IBUPROFEN 400 MG TABLET PO ONE (17:01)
[2023-12-28] MEDS: IV NS 0.9% 1,000 ML BAG IV ONE (17:01)
[2023-12-28 17:29] LABS: BASOPHILS # (AUTO) 0.3 K/uL (0.0-0.2); BASOPHILS % (AUTO) 1.5 % (0.0-2.0); EOSINOPHILS % (AUTO) 0.2 % (0.0-6.0); HEMATOCRIT 38 % (33-45); HEMOGLOBIN 11.5 g/dL (11.5-14.8); LYMPHOCYTES # (AUTO) 1.4 K/uL (0.8-4.8); LYMPHOCYTES % (AUTO) 8.2 % (20.0-44.0); MEAN CORPUSCULAR HEMOGLOBIN 20 PG (26.0-33.0); MEAN CORPUSCULAR HGB CONC 30 g/dl (31.0-36.0); MEAN CORPUSCULAR VOLUME 65 fL (82-100); MONOCYTES # (AUTO) 1.4 K/uL (0.1-1.30); MONOCYTES % (AUTO) 8.5 % (2.0-12.0); NEUTROPHILS # (AUTO) 13.9 K/uL (1.8-8.9); NEUTROPHILS % (AUTO) 81.6 % (43.0-81.0); PLATELET COUNT (AUTO) 221 K/uL (150-450); RED BLOOD CELL COUNT(AUTO) 5.87 MIL/uL (4.0-5.2); RED CELL DISTRIBUTION WIDTH 15.8 % (11.5-15.0); WHITE BLOOD COUNT (AUTO) 17.1 K/uL (4.3-11.0)
[2023-12-28 17:39] LABS: CALCIUM, SERUM 8.7 mg/dL (8.5-10.1); CARBON DIOXIDE 28 mmol/L (21-32); CHLORIDE 101 mmol/L (98-107); CREATININE 1.4 mg/dL (0.6-1.3); GLUCOSE 156 mg/dL (74-106); POTASSIUM 3.4 mmol/L (3.5-5.1); SODIUM SERUM 136 mmol/L (136-145); UREA NITROGEN, BLOOD 21 mg/dL (7-18)
[2023-12-28 17:45] LABS: ALANINE AMINOTRANSFERASE 62 U/L (12-78); ALKALINE PHOSPHATASE 125 U/L (46-116); ASPARTATE AMINOTRANSFERASE 36 U/L (15-37); BILIRUBIN,DIRECT 0.2 mg/dL (0.0-0.2); BILIRUBIN,TOTAL 0.7 mg/dL (0.2-1.0); TOTAL PROTEIN, SERUM 8.3 g/dL (6.4-8.2)
[2023-12-28 17:54] LABS: PARTIAL THROMBOPLASTIN TIME 29.9 SEC (24.3-34.3); PROTHROMBIN TIME 10.3 SECS (9.2-11.1)
[2023-12-28 18:18] LABS: LACTIC ACID 1.6 mmol/L (0.4-2.0)
[2023-12-28 18:29] LABS: APPEARANCE,URINE SLIGHTLY CLOUDY (CLEAR); BILIRUBIN,URINE NEGATIVE (NEGATIVE); BLOOD, URINE 3+ Ery/uL (NEGATIVE); COLOR,URINE YELLOW (YELLOW); KETONES,URINE NEGATIVE (NEGATIVE); LEUKOCYTE ESTERASE ,URINE TRACE (NEGATIVE); NITRITE, URINE POSITIVE (NEGATIVE); PROTEIN,URINE 2+ mg/dl (NEGATIVE); UGLUCOSE NEGATIVE (NEGATIVE); UROBILINOGEN,URINE 0.2 EU/dL (0.2)
[2023-12-28 18:39] LABS: ADD URINE CULTURE YES; BACTERIA,URINE 4+ /HPF (None Seen); RBC,URINE TOO NUMEROUS TO COUN /HPF (0-2); SQUAMOUS EPITHELIAL CELL,UR Few /HPF (None Seen); WBC,URINE 21-50 /HPF (0-3)
[2023-12-28 19:05] VITALS: TEMP 97.8
[2023-12-28] MEDS ORDERED: IBUP-1955 PO (19:28)
[2023-12-28] MEDS ORDERED: LEVO500T90 PO (19:28)
[2023-12-28] MEDS ORDERED: ACET-2605 PO (19:28)
[2023-12-28] MEDS ORDERED: CEFTRIAXONE 1GM BAG (ER ONLY) 50 ML IV ONE (19:36)
[2023-12-28] MEDS: CEFTRIAXONE 1GM BAG (ER ONLY) 1 GM/50 ML PIGGYBACK IV ONE (19:42)
[2023-12-28 20:01] LABS: ANISOCYTOSIS 1+; LYMPHOCYTES % (MANUAL) 10 % (16-48); MONOCYTES % (MANUAL) 10 % (0-11.0); NEUTROPHILS % (MANUAL) 80 (42-76); PLATELET ESTIMATE ADEQUATE
[2023-12-28 20:02] LABS: OVALOCYTES 1+; TARGET CELLS 1+
[2023-12-28 20:03] LABS: HYPOCHROMASIA 1+
[2023-12-28 20:06] VITALS: BP 108/66; O2SAT 98
== END 2023-12-28 20:06 | disposition home or self-care (01) ==
LOC: ER 16:48
DX: N39.0 Urinary tract infection, site not specified (principal); I10 Essential (primary) hypertension; Z79.899 Other long term (current) drug therapy; Z90.49 Acquired absence of other specified parts of digestive tract; Z20.822 Contact with and (suspected) exposure to COVID-19; Z91.040 Latex allergy status
CPT/HCPCS: 99285; 96365; 71045; 96361; 87426; 93005; 87804 ×2; 84145; 85025; 80048; 87086; 83605; 80076; 81001; 36415; 84484; 85730; 85007; J7030; J0696

== ENCOUNTER 2024-01-05 12:31 | Inpatient (IN) | payer BC, OTHER ==
[~2024-01-05] VITALS: Ht 162.6 cm; Wt 94.8 kg
[~2024-01-05 12:31] MED LIST changes: +ACET-2605 PO; +LEVO500T90 PO
[2024-01-05] MEDS ORDERED: CEFTRIAXONE 1GM BAG (ER ONLY) 50 ML IV ONE (13:03)
[2024-01-05] MEDS: CEFTRIAXONE 1GM BAG (ER ONLY) 50 ML IV ONE (13:10)
[2024-01-05] MEDS: IV NS 0.9% 1,000 ML BAG IV ONE ×3 (13:10→16:01)
[2024-01-05 13:15] LABS: BASOPHILS # (AUTO) 0.1 K/uL (0.0-0.2); EOSINOPHILS # (AUTO) 0.1 K/uL (0.0-0.7); EOSINOPHILS % (AUTO) 0.4 % (0.0-6.0); HEMOGLOBIN 11.3 g/dL (11.5-14.8)
[2024-01-05 13:17] LABS: BASOPHILS % (AUTO) 0.3 % (0.0-2.0); HEMATOCRIT 36 % (33-45); LYMPHOCYTES # (AUTO) 0.4 K/uL (0.8-4.8); LYMPHOCYTES % (AUTO) 1.7 % (20.0-44.0); MEAN CORPUSCULAR HEMOGLOBIN 20 PG (26.0-33.0); MEAN CORPUSCULAR HGB CONC 31 g/dl (31.0-36.0); MEAN CORPUSCULAR VOLUME 63 fL (82-100); MONOCYTES # (AUTO) 0.6 K/uL (0.1-1.30); MONOCYTES % (AUTO) 2.7 % (2.0-12.0); NEUTROPHILS # (AUTO) 20.1 K/uL (1.8-8.9); NEUTROPHILS % (AUTO) 94.9 % (43.0-81.0); PLATELET COUNT (AUTO) 197 K/uL (150-450); RED BLOOD CELL COUNT(AUTO) 5.73 MIL/uL (4.0-5.2); RED CELL DISTRIBUTION WIDTH 15.9 % (11.5-15.0); WHITE BLOOD COUNT (AUTO) 21.2 K/uL (4.3-11.0)
[2024-01-05 13:23] LABS: CARBON DIOXIDE 26 mmol/L (21-32); CHLORIDE 97 mmol/L (98-107); CREATININE 2.5 mg/dL (0.6-1.3); GLUCOSE 151 mg/dL (74-106); POTASSIUM 3.5 mmol/L (3.5-5.1); SODIUM SERUM 130 mmol/L (136-145); UREA NITROGEN, BLOOD 36 mg/dL (7-18)
[2024-01-05] MEDS ORDERED: CHLO25TA2 PO (13:24)
[2024-01-05] MEDS ORDERED: SULF1TAB48 PO (13:24)
[2024-01-05] MEDS ORDERED: CHOL100062 PO (13:24)
[2024-01-05] MEDS ORDERED: ASCO100058 PO (13:24)
[2024-01-05] MEDS ORDERED: ASPI-1169 PO (13:24)
[2024-01-05] MEDS ORDERED: LOSA50TA39 PO (13:24)
[2024-01-05] MEDS ORDERED: OMEG-162 PO (13:24)
[2024-01-05] MEDS ORDERED: IBUP-1955 PO (13:24)
[2024-01-05] MEDS ORDERED: ACET-2605 PO (13:24)
[2024-01-05] MEDS ORDERED: ATOR40TA PO (13:24)
[2024-01-05 13:26] LABS: INR 1.13 (0.91-1.10); PARTIAL THROMBOPLASTIN TIME 39.4 SEC (24.3-34.3); PROTHROMBIN TIME 11.5 SECS (9.2-11.1)
[2024-01-05 13:29] LABS: ALANINE AMINOTRANSFERASE 92 U/L (12-78); ALBUMIN 2.5 g/dL (3.4-5.0); ALKALINE PHOSPHATASE 160 U/L (46-116); ASPARTATE AMINOTRANSFERASE 66 U/L (15-37); BILIRUBIN,DIRECT 0.5 mg/dL (0.0-0.2); BILIRUBIN,TOTAL 0.9 mg/dL (0.2-1.0); TOTAL PROTEIN, SERUM 8.1 g/dL (6.4-8.2)
[2024-01-05] MEDS ORDERED: ACETAMINOPHEN 325 MG TABLET ONE (13:58)
[2024-01-05] MEDS ORDERED: KETOROLAC TROMETHAMINE 15 MG/ML VIAL ONE (13:58)
[2024-01-05] MEDS: KETOROLAC TROMETHAMINE 15 MG/ML VIAL IV ONE (13:59)
[2024-01-05] MEDS: ACETAMINOPHEN 325 MG TABLET PO ONE (13:59)
[2024-01-05] MEDS ORDERED: ONDANSETRON HCL/PF 4 MG/2 ML VIAL ONE (14:01)
[2024-01-05] MEDS: ONDANSETRON HCL/PF 4 MG/2 ML VIAL IV ONE (14:38)
[2024-01-05 15:19] LABS: APPEARANCE,URINE Slightly Cloudy (CLEAR); BILIRUBIN,URINE SMALL (NEGATIVE); BLOOD, URINE Large Ery/uL (NEGATIVE); COLOR,URINE YELLOW (YELLOW); KETONES,URINE Negative (NEGATIVE); LEUKOCYTE ESTERASE ,URINE Negative (NEGATIVE); NITRITE, URINE Negative (NEGATIVE); PROTEIN,URINE >=300 mg/dl (NEGATIVE); UGLUCOSE Negative (NEGATIVE)
[2024-01-05 15:32] LABS: ADD URINE CULTURE NO; BACTERIA,URINE 1+ /HPF (None Seen); RBC,URINE TOO NUMEROUS TO COUN /HPF (0-2); SQUAMOUS EPITHELIAL CELL,UR Few /HPF (None Seen)
[2024-01-05] MEDS ORDERED: MAG HYDROX/AL HYDROX/SIMETH 30 ML UDC PO PRN ×2 (16:00→20:00)
[2024-01-05] MEDS ORDERED: ZOLPIDEM TARTRATE 5 MG TABLET PO PRN (16:00)
[2024-01-05] MEDS ORDERED: ACETAMINOPHEN ES 500 MG TABLET PO PRN (16:00)
[2024-01-05] MEDS ORDERED: Z GUARD REMEDY 4 OZ OINT TP PRN (16:00)
[2024-01-05] MEDS: IV NS 0.9% 1,000 ML IV PRN (16:58)
[2024-01-05 18:18] LABS: ANISOCYTOSIS 1+; BAND % (MANUAL) 6 % (0.0-5.0); EOSINOPHILS % (MANUAL) 1 % (0-4); LYMPHOCYTES % (MANUAL) 6 % (16-48); MONOCYTES % (MANUAL) 2 % (0-11.0); NEUTROPHILS % (MANUAL) 85 (42-76); PLATELET ESTIMATE ADEQUATE
[2024-01-05 18:19] LABS: ROULEAUX 1+
[2024-01-05] MEDS: ONDANSETRON HCL/PF 4 MG/2 ML VIAL IVP PRN (18:38)
[2024-01-05 20:00] VITALS: BP 87/78; TEMP 98.2; O2SAT 96
[2024-01-05 20:05] VITALS: BP_SYST 83; BP_SYST 99; BP_DIAS 54; BP_DIAS 59; TEMP 98.1; O2SAT 98
[2024-01-05 20:09] VITALS: BP 87/48; TEMP 98.2; O2SAT 95
[2024-01-05] MEDS: PANTOPRAZOLE 40 MG VIAL IV ONE (20:37)
[2024-01-05 22:05] VITALS: BP 90/65; TEMP 97.7
[2024-01-05] MEDS: ATORVASTATIN 40 MG TABLET PO SCH (22:05)
[2024-01-05] MEDS: HEPARIN SODIUM, PORCINE 5000 UNITS/1 ML VIAL SQ SCH (22:05)
[2024-01-06] VITALS (8 sets, daily range): BP systolic 89–112; BP diastolic 49–65; TEMP 98.8–100.2; O2SAT 90–96
[2024-01-06] MEDS: HYDROCODONE/APAP 5/325MG TABLET PO PRN (01:40)
[2024-01-06 07:44] LABS: BASOPHILS % (AUTO) 0.1 % (0.0-2.0); EOSINOPHILS # (AUTO) 0.2 K/uL (0.0-0.7); EOSINOPHILS % (AUTO) 1.2 % (0.0-6.0); HEMATOCRIT 33 % (33-45); HEMOGLOBIN 10.2 g/dL (11.5-14.8); LYMPHOCYTES # (AUTO) 1.3 K/uL (0.8-4.8); LYMPHOCYTES % (AUTO) 6.6 % (20.0-44.0); MEAN CORPUSCULAR HEMOGLOBIN 20 PG (26.0-33.0); MEAN CORPUSCULAR HGB CONC 31 g/dl (31.0-36.0); MEAN CORPUSCULAR VOLUME 64 fL (82-100); MONOCYTES # (AUTO) 0.7 K/uL (0.1-1.30); MONOCYTES % (AUTO) 3.4 % (2.0-12.0); NEUTROPHILS % (AUTO) 88.7 % (43.0-81.0); PLATELET COUNT (AUTO) 161 K/uL (150-450); RED CELL DISTRIBUTION WIDTH 15.6 % (11.5-15.0); WHITE BLOOD COUNT (AUTO) 19.2 K/uL (4.3-11.0)
[2024-01-06] MEDS: ASPIRIN 81 MG TAB.CHEW PO SCH (08:50)
[2024-01-06] MEDS: LORATADINE 10 MG TABLET PO SCH (08:50)
[2024-01-06] MEDS: ASCORBIC ACID 500 MG TABLET PO SCH (08:51)
[2024-01-06] MEDS ORDERED: Medication Not On Formulary EA (Omega-3/Dha/Epa/Fish Oil (Fish Oil 1,000 Mg Softgel) 1 E PO SCH (09:00)
[2024-01-06 09:10] LABS: ALBUMIN 1.9 g/dL (3.4-5.0); BILIRUBIN,DIRECT 0.3 mg/dL (0.0-0.2); BILIRUBIN,TOTAL 0.5 mg/dL (0.2-1.0); CALCIUM, SERUM 7.1 mg/dL (8.5-10.1); CREATININE 2.4 mg/dL (0.6-1.3); MAGNESIUM 1.9 mg/dL (1.8-2.4); PHOSPHORUS 3.3 mg/dL (2.5-4.9); POTASSIUM 3.2 mmol/L (3.5-5.1)
[2024-01-06] MEDS: IV NS 0.9% 1,000 ML BAG IV PRN (10:41)
[2024-01-06 11:05] LABS: ANISOCYTOSIS 1+; BAND % (MANUAL) 3 % (0.0-5.0); LYMPHOCYTES % (MANUAL) 6 % (16-48); MONOCYTES % (MANUAL) 4 % (0-11.0); NEUTROPHILS % (MANUAL) 87 (42-76); PLATELET ESTIMATE ADEQUATE; SMUDGE CELLS FEW
[2024-01-06 11:06] LABS: OVALOCYTES 1+
[2024-01-06] MEDS: IV NS 0.9% 1,000 ML IV ONE (11:22)
[2024-01-06] MEDS: MEROPENEM 500 MG in IV NS 0.9% 50 ML IV SCH (11:24)
[2024-01-06] MEDS: ACETAMINOPHEN 325 MG TABLET PO PRN (11:33)
[2024-01-06] MEDS: POTASSIUM CHLORIDE 20 MEQ TAB.PRT.SR PO ONE (12:31)
[2024-01-06] MEDS ORDERED: CEFTRIAXONE 1 G in IV D5W 50 ML IV SCH (13:00)
[2024-01-06] MEDS ORDERED: GLUCERNA SHAKE 237 ML CAN PO SCH (17:00)
[2024-01-06] MEDS: GLUCERNA SHAKE 237 ML CAN PO SCH (17:27)
[2024-01-06] MEDS ORDERED: KETOROLAC TROMETHAMINE 15 MG/ML VIAL IV ONE (19:00)
[2024-01-06] MEDS: PANTOPRAZOLE 40 MG TABLET.DR PO SCH (19:30)
[2024-01-07] VITALS (7 sets, daily range): BP systolic 90–141; BP diastolic 57–93; TEMP 98.1–99.1; O2SAT 90–100
[2024-01-07 08:28] LABS: BASOPHILS % (AUTO) 0.1 % (0.0-2.0); EOSINOPHILS # (AUTO) 0.1 K/uL (0.0-0.7); EOSINOPHILS % (AUTO) 0.6 % (0.0-6.0); HEMATOCRIT 30 % (33-45); HEMOGLOBIN 9.5 g/dL (11.5-14.8); LYMPHOCYTES # (AUTO) 1.1 K/uL (0.8-4.8); LYMPHOCYTES % (AUTO) 5.5 % (20.0-44.0); MEAN CORPUSCULAR HEMOGLOBIN 20 PG (26.0-33.0); MEAN CORPUSCULAR HGB CONC 32 g/dl (31.0-36.0); MEAN CORPUSCULAR VOLUME 63 fL (82-100); MONOCYTES % (AUTO) 5.1 % (2.0-12.0); NEUTROPHILS # (AUTO) 17.8 K/uL (1.8-8.9); NEUTROPHILS % (AUTO) 88.7 % (43.0-81.0); PLATELET COUNT (AUTO) 147 K/uL (150-450); RED BLOOD CELL COUNT(AUTO) 4.77 MIL/uL (4.0-5.2); RED CELL DISTRIBUTION WIDTH 15.8 % (11.5-15.0); WHITE BLOOD COUNT (AUTO) 20.1 K/uL (4.3-11.0)
[2024-01-07] MEDS: HYDROCODONE/APAP 5/325MG TABLET PO PRN (08:51)
[2024-01-07 09:08] LABS: MONOCYTES % (MANUAL) 3 % (0-11.0)
[2024-01-07 09:11] LABS: BAND % (MANUAL) 19 % (0.0-5.0); EOSINOPHILS % (MANUAL) 1 % (0-4); LYMPHOCYTES % (MANUAL) 9 % (16-48); NEUTROPHILS % (MANUAL) 68 (42-76); PLATELET ESTIMATE DECREASED
[2024-01-07 13:12] LABS: THYROID STIMULATING HORMONE 1.129 uIU/mL (0.358-3.74)
[2024-01-07 16:23] LABS: ALBUMIN 1.7 g/dL (3.4-5.0); BILIRUBIN,TOTAL 0.5 mg/dL (0.2-1.0); CREATININE 2.1 mg/dL (0.6-1.3); PHOSPHORUS 2.5 mg/dL (2.5-4.9); POTASSIUM 3.8 mmol/L (3.5-5.1); TOTAL PROTEIN, SERUM 6.7 g/dL (6.4-8.2)
[2024-01-07] MEDS: CEFTRIAXONE 1 G in IV D5W 50 ML IV SCH (16:39)
[2024-01-07] MEDS ORDERED: MEROPENEM 1 G in IV NS 0.9% 100 ML IV SCH (21:00)
[2024-01-08] VITALS (14 sets, daily range): BP systolic 101–141; BP diastolic 53–93; TEMP 98.4–101.7; O2SAT 91–100
[2024-01-08] MEDS: IPRATROPIUM NEB FS 0.5 MG/2.5 ML AMPUL.NEB NEB PRN (02:24)
[2024-01-08] MEDS: ALBUTEROL FS 2.5 MG/3 ML VIAL.NEB NEB PRN (02:24)
[2024-01-08 08:05] LABS: BASOPHILS # (AUTO) 0.1 K/uL (0.0-0.2); BASOPHILS % (AUTO) 0.2 % (0.0-2.0); EOSINOPHILS % (AUTO) 0.2 % (0.0-6.0); HEMATOCRIT 30 % (33-45); HEMOGLOBIN 9.1 g/dL (11.5-14.8); LYMPHOCYTES # (AUTO) 1.4 K/uL (0.8-4.8); LYMPHOCYTES % (AUTO) 6.1 % (20.0-44.0); MEAN CORPUSCULAR HEMOGLOBIN 20 PG (26.0-33.0); MEAN CORPUSCULAR HGB CONC 31 g/dl (31.0-36.0); MEAN CORPUSCULAR VOLUME 64 fL (82-100); MONOCYTES # (AUTO) 1.3 K/uL (0.1-1.30); MONOCYTES % (AUTO) 5.7 % (2.0-12.0); NEUTROPHILS # (AUTO) 20.3 K/uL (1.8-8.9); NEUTROPHILS % (AUTO) 87.8 % (43.0-81.0); PLATELET COUNT (AUTO) 149 K/uL (150-450); RED BLOOD CELL COUNT(AUTO) 4.65 MIL/uL (4.0-5.2); RED CELL DISTRIBUTION WIDTH 15.9 % (11.5-15.0); WHITE BLOOD COUNT (AUTO) 23.1 K/uL (4.3-11.0)
[2024-01-08 08:07] LABS: CALCIUM, SERUM 7.1 mg/dL (8.5-10.1); MAGNESIUM 2.1 mg/dL (1.8-2.4); PHOSPHORUS 2.3 mg/dL (2.5-4.9); POTASSIUM 3.5 mmol/L (3.5-5.1)
[2024-01-08] MEDS: GUAIFENESIN/CODEINE 10 ML UDC PO PRN (08:51)
[2024-01-08] MEDS: POTASSIUM CHLORIDE 20 MEQ TAB.PRT.SR PO SCH (08:58)
[2024-01-08] MEDS: FUROSEMIDE 40 MG/4 ML VIAL IV SCH ×2 (08:59→11:37)
[2024-01-08 09:57] LABS: ABG OXYGEN SATURATION 93.2 % (92.0-98.5); ABG PCO2 29.4 mmHg (35.0-45.0); ABG PO2 67.7 mmHg (75.0-100.0); ABG TOTAL HEMOGLOBIN 10.7 G/dL (12.0-16.0); AaDO2 104.5 mmHg; COHb 0.5 % (0.5-1.5); MetHb 0.2 % (0.0-1.5); O2Hb 92.5 % (94.0-97.0); SITE, ABG Right Radial
[2024-01-08] MEDS: ALBUTEROL FS 2.5 MG/3 ML VIAL.NEB NEB ONE (10:07)
[2024-01-08] MEDS ORDERED: FUROSEMIDE 40 MG/4 ML VIAL IV SCH ×2 (11:00→13:00)
[2024-01-08] MEDS: VANCOMYCIN HCL 1.25 GM in IV D5W 250 ML IV SCH (12:11)
[2024-01-08 12:49] LABS: APPEARANCE,URINE CLEAR (CLEAR); BILIRUBIN,URINE NEGATIVE (NEGATIVE); BLOOD, URINE 3+ Ery/uL (NEGATIVE); COLOR,URINE YELLOW (YELLOW); KETONES,URINE NEGATIVE (NEGATIVE); LEUKOCYTE ESTERASE ,URINE NEGATIVE (NEGATIVE); NITRITE, URINE NEGATIVE (NEGATIVE); PROTEIN,URINE 1+ mg/dl (NEGATIVE); UGLUCOSE NEGATIVE (NEGATIVE); UROBILINOGEN,URINE 0.2 EU/dL (0.2)
[2024-01-08 13:03] LABS: ADD URINE CULTURE NO; BACTERIA,URINE Rare /HPF (None Seen); SQUAMOUS EPITHELIAL CELL,UR Few /HPF (None Seen)
[2024-01-08 13:14] LABS: CREATININE, URINE 39.3 MG/DL (30.0-125.0)
[2024-01-08 13:16] LABS: BASOPHILS % (AUTO) 0.1 % (0.0-2.0); EOSINOPHILS % (AUTO) 0.2 % (0.0-6.0); HEMATOCRIT 30 % (33-45); HEMOGLOBIN 9.4 g/dL (11.5-14.8); LYMPHOCYTES # (AUTO) 1.6 K/uL (0.8-4.8); LYMPHOCYTES % (AUTO) 7.3 % (20.0-44.0); MEAN CORPUSCULAR HEMOGLOBIN 20 PG (26.0-33.0); MEAN CORPUSCULAR HGB CONC 32 g/dl (31.0-36.0); MEAN CORPUSCULAR VOLUME 63 fL (82-100); MONOCYTES # (AUTO) 1.2 K/uL (0.1-1.30); MONOCYTES % (AUTO) 5.5 % (2.0-12.0); NEUTROPHILS # (AUTO) 19.2 K/uL (1.8-8.9); NEUTROPHILS % (AUTO) 86.9 % (43.0-81.0); PLATELET COUNT (AUTO) 165 K/uL (150-450); RED BLOOD CELL COUNT(AUTO) 4.71 MIL/uL (4.0-5.2); RED CELL DISTRIBUTION WIDTH 15.9 % (11.5-15.0); WHITE BLOOD COUNT (AUTO) 22.1 K/uL (4.3-11.0)
[2024-01-08 13:19] LABS: EOSINOPHIL,URINE None Seen
[2024-01-08] MEDS: K PHOS NEUTRAL 250 MG TABLET PO ONE (15:50)
[2024-01-08] MEDS: MEROPENEM 500 MG in IV NS 0.9% 50 ML IV SCH (16:03)
[2024-01-08] MEDS ORDERED: MEROPENEM 1 G in IV NS 0.9% 100 ML IV SCH (21:00)
[2024-01-09] VITALS (13 sets, daily range): BP systolic 91–122; BP diastolic 43–71; TEMP 97.6–102; O2SAT 91–99
[2024-01-09] MEDS: PHENAZOPYRIDINE HCL 200 MG TABLET PO PRN (04:15)
[2024-01-09 08:06] LABS: BASOPHILS # (AUTO) 0.1 K/uL (0.0-0.2); BASOPHILS % (AUTO) 0.3 % (0.0-2.0); EOSINOPHILS # (AUTO) 0.3 K/uL (0.0-0.7); EOSINOPHILS % (AUTO) 1.1 % (0.0-6.0); HEMATOCRIT 29 % (33-45); HEMOGLOBIN 9.1 g/dL (11.5-14.8); LYMPHOCYTES # (AUTO) 1.3 K/uL (0.8-4.8); LYMPHOCYTES % (AUTO) 5.5 % (20.0-44.0); MEAN CORPUSCULAR HEMOGLOBIN 19 PG (26.0-33.0); MEAN CORPUSCULAR HGB CONC 31 g/dl (31.0-36.0); MEAN CORPUSCULAR VOLUME 63 fL (82-100); MONOCYTES # (AUTO) 1.4 K/uL (0.1-1.30); MONOCYTES % (AUTO) 6.1 % (2.0-12.0); NEUTROPHILS # (AUTO) 20.1 K/uL (1.8-8.9); PLATELET COUNT (AUTO) 177 K/uL (150-450); RED BLOOD CELL COUNT(AUTO) 4.68 MIL/uL (4.0-5.2); RED CELL DISTRIBUTION WIDTH 15.9 % (11.5-15.0); WHITE BLOOD COUNT (AUTO) 23.1 K/uL (4.3-11.0)
[2024-01-09 08:37] LABS: ALBUMIN 1.5 g/dL (3.4-5.0); BILIRUBIN,TOTAL 1.4 mg/dL (0.2-1.0); CALCIUM, SERUM 7.7 mg/dL (8.5-10.1); CREATININE 2.1 mg/dL (0.6-1.3); MAGNESIUM 1.9 mg/dL (1.8-2.4); PHOSPHORUS 3.9 mg/dL (2.5-4.9); POTASSIUM 3.3 mmol/L (3.5-5.1); TOTAL PROTEIN, SERUM 6.9 g/dL (6.4-8.2)
[2024-01-09 10:07] LABS: *SPE A/G RATIO 0.5 (0.7-1.7); *SPE ALBUMIN 1.9 g/dL (2.9-4.4); *SPE ALPHA-1-GLOBULIN 0.5 g/dL (0.0-0.4); *SPE BETA GLOBULIN 1.1 g/dL (0.7-1.3); *SPE GLOBULIN, TOTAL 3.8 g/dL (2.2-3.9); *SPE M-SPIKE Not Observed g/dL (Not Observed); *SPE PROTEIN TOTAL 5.7 g/dL (6.0-8.5); *SPEGAMMA GLOBULIN 1.2 g/dL (0.4-1.8)
[2024-01-09] MEDS ORDERED: DILTIAZEM HCL 25 MG IV IV PRN (12:30)
[2024-01-09] MEDS: AMIODARONE 150 MG in IV D5W 100 ML IV ONE ×2 (13:00→23:10)
[2024-01-09] MEDS: POTASSIUM CHLORIDE 10 MEQ TABLET.SA PO ONE (13:07)
[2024-01-09] MEDS: GLUCERNA SHAKE 237 ML CAN PO SCH (17:00)
[2024-01-09] MEDS: AMIODARONE 150 MG/3 ML VIAL IV ONE (22:58)
[2024-01-09] MEDS: AMIODARONE 450 MG in IV D5W 241 ML IV PRN (23:20)
[2024-01-09] MEDS: IPRATROPIUM NEB FS 0.5 MG/2.5 ML AMPUL.NEB NEB SCH (23:53)
[2024-01-09] MEDS: ALBUTEROL FS 2.5 MG/3 ML VIAL.NEB NEB SCH (23:53)
[2024-01-10] VITALS (17 sets, daily range): BP systolic 90–114; BP diastolic 43–75; TEMP 98.1–100; O2SAT 90–99
[2024-01-10 07:36] LABS: BASOPHILS # (AUTO) 0.1 K/uL (0.0-0.2); BASOPHILS % (AUTO) 0.3 % (0.0-2.0); EOSINOPHILS # (AUTO) 0.4 K/uL (0.0-0.7); EOSINOPHILS % (AUTO) 1.7 % (0.0-6.0); HEMATOCRIT 29 % (33-45); HEMOGLOBIN 9.4 g/dL (11.5-14.8); LYMPHOCYTES # (AUTO) 1.1 K/uL (0.8-4.8); LYMPHOCYTES % (AUTO) 4.8 % (20.0-44.0); MEAN CORPUSCULAR HEMOGLOBIN 20 PG (26.0-33.0); MEAN CORPUSCULAR HGB CONC 32 g/dl (31.0-36.0); MEAN CORPUSCULAR VOLUME 63 fL (82-100); MONOCYTES # (AUTO) 1.1 K/uL (0.1-1.30); MONOCYTES % (AUTO) 4.9 % (2.0-12.0); NEUTROPHILS # (AUTO) 20.5 K/uL (1.8-8.9); NEUTROPHILS % (AUTO) 88.3 % (43.0-81.0); PLATELET COUNT (AUTO) 225 K/uL (150-450); RED BLOOD CELL COUNT(AUTO) 4.68 MIL/uL (4.0-5.2); WHITE BLOOD COUNT (AUTO) 23.3 K/uL (4.3-11.0)
[2024-01-10 08:17] LABS: CALCIUM, SERUM 7.8 mg/dL (8.5-10.1); CREATININE 2.5 mg/dL (0.6-1.3); POTASSIUM 3.3 mmol/L (3.5-5.1)
[2024-01-10] MEDS: POTASSIUM CHLORIDE 20 MEQ TAB.PRT.SR PO SCH (09:19)
[2024-01-10] MEDS: AMIODARONE HCL 200 MG TABLET PO SCH (09:19)
[2024-01-10 09:27] LABS: MAGNESIUM 2.2 mg/dL (1.8-2.4); PHOSPHORUS 4.4 mg/dL (2.5-4.9)
[2024-01-10] MEDS: VANCOMYCIN HCL 1.25 GM in IV D5W 250 ML IV SCH (10:34)
[2024-01-10] MEDS: GUAIFENESIN/CODEINE 10 ML UDC PO PRN (15:46)
[2024-01-11] VITALS (40 sets, daily range): BP systolic 96–130; BP diastolic 43–92; TEMP 97.8–99; O2SAT 86–100
[2024-01-11] MEDS: MORPHINE SULFATE INJ 2 MG/ML DISP.SYRIN IV PRN (00:43)
[2024-01-11 07:15] LABS: BASOPHILS # (AUTO) 0.1 K/uL (0.0-0.2); BASOPHILS % (AUTO) 0.2 % (0.0-2.0); EOSINOPHILS # (AUTO) 0.4 K/uL (0.0-0.7); EOSINOPHILS % (AUTO) 1.5 % (0.0-6.0); HEMATOCRIT 28 % (33-45); HEMOGLOBIN 8.9 g/dL (11.5-14.8); LYMPHOCYTES % (AUTO) 3.9 % (20.0-44.0); MEAN CORPUSCULAR HEMOGLOBIN 20 PG (26.0-33.0); MEAN CORPUSCULAR HGB CONC 32 g/dl (31.0-36.0); MEAN CORPUSCULAR VOLUME 62 fL (82-100); MONOCYTES # (AUTO) 1.3 K/uL (0.1-1.30); MONOCYTES % (AUTO) 5.2 % (2.0-12.0); NEUTROPHILS # (AUTO) 22.1 K/uL (1.8-8.9); NEUTROPHILS % (AUTO) 89.2 % (43.0-81.0); PLATELET COUNT (AUTO) 287 K/uL (150-450); RED BLOOD CELL COUNT(AUTO) 4.53 MIL/uL (4.0-5.2); RED CELL DISTRIBUTION WIDTH 16.2 % (11.5-15.0); WHITE BLOOD COUNT (AUTO) 24.8 K/uL (4.3-11.0)
[2024-01-11 07:23] LABS: CALCIUM, SERUM 7.4 mg/dL (8.5-10.1); CREATININE 3.8 mg/dL (0.6-1.3); MAGNESIUM 2.4 mg/dL (1.8-2.4); PHOSPHORUS 4.9 mg/dL (2.5-4.9); POTASSIUM 3.9 mmol/L (3.5-5.1)
[2024-01-11 08:58] LABS: ABG BASE EXCESS -7.4 mmol/L; ABG PCO2 32.4 mmHg (35.0-45.0); ABG PH 7.346 (7.350-7.450); ABG PO2 74.4 mmHg (75.0-100.0); ABG TOTAL HEMOGLOBIN 10.2 G/dL (12.0-16.0); AaDO2 245.7 mmHg; COHb 0.3 % (0.5-1.5); MetHb 0.3 % (0.0-1.5); O2Hb 93.4 % (94.0-97.0); SITE, ABG Right Radial
[2024-01-11 10:22] LABS: EOSINOPHILS % (MANUAL) 3 % (0-4); LYMPHOCYTES % (MANUAL) 4 % (16-48); MONOCYTES % (MANUAL) 3 % (0-11.0); NEUTROPHILS % (MANUAL) 90 (42-76)
[2024-01-11 10:26] LABS: OVALOCYTES 1+; PLATELET ESTIMATE ADEQUATE
[2024-01-11 10:27] LABS: ANISOCYTOSIS 1+
[2024-01-11] MEDS: methylPREDNISolone SOD SUCC 40 MG/ML VIAL IV SCH (10:28)
[2024-01-11] MEDS: IV NS 0.9% 1,000 ML IV PRN (10:28)
[2024-01-11] MEDS ORDERED: DEXTROSE 50%-WATER 50 ML DISP.SYRIN IV PRN (13:00)
[2024-01-11] MEDS: BLOOD SUGAR DIAGNOSTIC 1 EACH STRIP VI SCH (13:13)
[2024-01-11] MEDS: LEVALBUTEROL HCL NEB 1.25 MG/0.5 ML VIAL.NEB NEB PRN (15:55)
[2024-01-11] MEDS: LINEZOLID RTU BAG 600 MG in PREMIX 1 EA IV SCH (20:45)
[2024-01-11] MEDS ORDERED: VANCOMYCIN 1 GM in IV D5W 250ml IV SCH (23:00)
[2024-01-12] VITALS (45 sets, daily range): BP systolic 88–140; BP diastolic 56–87; TEMP 97.7–98.5; O2SAT 89–97
[2024-01-12 05:59] LABS: ABG OXYGEN SATURATION 92.9 % (92.0-98.5); ABG PCO2 36.3 mmHg (35.0-45.0); ABG PH 7.285 (7.350-7.450); ABG PO2 73.3 mmHg (75.0-100.0); ABG TOTAL HEMOGLOBIN 12.6 G/dL (12.0-16.0); AaDO2 170.2 mmHg; MetHb 0.1 % (0.0-1.5); O2Hb 91.9 % (94.0-97.0); SITE, ABG Right Radial; VENT MODE, BG Venti Mask 40% 12LPM
[2024-01-12 07:23] LABS: HEMATOCRIT 30 % (33-45); HEMOGLOBIN 9.4 g/dL (11.5-14.8); LYMPHOCYTES # (AUTO) 1.1 K/uL (0.8-4.8); LYMPHOCYTES % (AUTO) 4.9 % (20.0-44.0); MEAN CORPUSCULAR HEMOGLOBIN 20 PG (26.0-33.0); MEAN CORPUSCULAR HGB CONC 31 g/dl (31.0-36.0); MEAN CORPUSCULAR VOLUME 62 fL (82-100); MONOCYTES # (AUTO) 0.6 K/uL (0.1-1.30); MONOCYTES % (AUTO) 2.6 % (2.0-12.0); NEUTROPHILS # (AUTO) 21.2 K/uL (1.8-8.9); NEUTROPHILS % (AUTO) 92.5 % (43.0-81.0); PLATELET COUNT (AUTO) 323 K/uL (150-450); RED BLOOD CELL COUNT(AUTO) 4.83 MIL/uL (4.0-5.2); RED CELL DISTRIBUTION WIDTH 16.1 % (11.5-15.0); WHITE BLOOD COUNT (AUTO) 22.9 K/uL (4.3-11.0)
[2024-01-12] MEDS: SODIUM BICARBONATE SYR 50 MEQ/50 ML DISP.SYRIN IV ONE (07:25)
[2024-01-12 07:27] LABS: CALCIUM, SERUM 8.2 mg/dL (8.5-10.1); CARBON DIOXIDE 19 mmol/L (21-32); CHLORIDE 100 mmol/L (98-107); CREATININE 4.8 mg/dL (0.6-1.3); GLUCOSE 137 mg/dL (74-106); MAGNESIUM 2.8 mg/dL (1.8-2.4); POTASSIUM 4.6 mmol/L (3.5-5.1); SODIUM SERUM 135 mmol/L (136-145); UREA NITROGEN, BLOOD 64 mg/dL (7-18)
[2024-01-12] MEDS: INSULIN REGULAR, HUMAN 100 UNIT/ML 3 ML VIAL SQ PRN (07:53)
[2024-01-12 07:55] LABS: NT-PRO BNP > 25000 pg/mL (0-125)
[2024-01-12 08:43] LABS: PHOSPHORUS 8.3 mg/dL (2.5-4.9)
[2024-01-12] MEDS ORDERED: VANCOMYCIN 1 GM in IV D5W 250ml IV SCH (11:00)
[2024-01-12] MEDS: DOXYCYCLINE 100 MG in IV D5W 100 ML IV SCH (20:29)
[2024-01-12] MEDS: *INSULIN REGULAR(HUMULIN R)HUM 100 UNIT/ML VIAL SQ PRN (21:42)
[2024-01-13] VITALS (40 sets, daily range): BP systolic 90–158; BP diastolic 56–102; TEMP 97.5–97.6; O2SAT 88–98
[2024-01-13 04:40] LABS: BASOPHILS % (AUTO) 0.2 % (0.0-2.0); HEMATOCRIT 26 % (33-45); HEMOGLOBIN 8.4 g/dL (11.5-14.8); LYMPHOCYTES % (AUTO) 6.1 % (20.0-44.0); MEAN CORPUSCULAR HEMOGLOBIN 20 PG (26.0-33.0); MEAN CORPUSCULAR HGB CONC 32 g/dl (31.0-36.0); MEAN CORPUSCULAR VOLUME 61 fL (82-100); MONOCYTES # (AUTO) 0.6 K/uL (0.1-1.30); MONOCYTES % (AUTO) 3.7 % (2.0-12.0); NEUTROPHILS # (AUTO) 14.8 K/uL (1.8-8.9); PLATELET COUNT (AUTO) 294 K/uL (150-450); RED BLOOD CELL COUNT(AUTO) 4.27 MIL/uL (4.0-5.2); RED CELL DISTRIBUTION WIDTH 15.8 % (11.5-15.0); WHITE BLOOD COUNT (AUTO) 16.4 K/uL (4.3-11.0)
[2024-01-13 05:00] LABS: CALCIUM, SERUM 7.5 mg/dL (8.5-10.1); CREATININE 3.9 mg/dL (0.6-1.3)
[2024-01-13 16:10] LABS: HEPATITIS B SURFACE AB Reactive (.)
[2024-01-13 20:09] LABS: ABG OXYGEN SATURATION 90.9 % (92.0-98.5); ABG PCO2 33.8 mmHg (35.0-45.0); ABG PH 7.444 (7.350-7.450); ABG TOTAL HEMOGLOBIN 9.9 G/dL (12.0-16.0); AaDO2 255.5 mmHg; COHb 0.7 % (0.5-1.5); MetHb 0.2 % (0.0-1.5); O2Hb 90.1 % (94.0-97.0); SITE, ABG Right Brachial; VENT MODE, BG venturi mask 50% 15L
[2024-01-13 21:30] LABS: HIV-1 p24 ANTIGEN NON REACTIVE (NONREACTIVE); HIV-1/2 ANTIBODY NON REACTIVE (NONREACTIVE)
[2024-01-14] VITALS (53 sets, daily range): BP systolic 97–148; BP diastolic 62–123; TEMP 98–98.3; O2SAT 81–98
[2024-01-14 05:13] LABS: BASOPHILS % (AUTO) 0.1 % (0.0-2.0); HEMATOCRIT 26 % (33-45); HEMOGLOBIN 8.5 g/dL (11.5-14.8); LYMPHOCYTES # (AUTO) 0.7 K/uL (0.8-4.8); LYMPHOCYTES % (AUTO) 4.5 % (20.0-44.0); MEAN CORPUSCULAR HEMOGLOBIN 20 PG (26.0-33.0); MEAN CORPUSCULAR HGB CONC 32 g/dl (31.0-36.0); MEAN CORPUSCULAR VOLUME 61 fL (82-100); MONOCYTES # (AUTO) 0.6 K/uL (0.1-1.30); MONOCYTES % (AUTO) 3.5 % (2.0-12.0); NEUTROPHILS # (AUTO) 14.8 K/uL (1.8-8.9); NEUTROPHILS % (AUTO) 91.9 % (43.0-81.0); PLATELET COUNT (AUTO) 286 K/uL (150-450); RED BLOOD CELL COUNT(AUTO) 4.31 MIL/uL (4.0-5.2); RED CELL DISTRIBUTION WIDTH 15.4 % (11.5-15.0); WHITE BLOOD COUNT (AUTO) 16.1 K/uL (4.3-11.0)
[2024-01-14 06:06] LABS: CALCIUM, SERUM 7.8 mg/dL (8.5-10.1); CREATININE 2.8 mg/dL (0.6-1.3); POTASSIUM 3.6 mmol/L (3.5-5.1)
[2024-01-14 06:34] LABS: LYMPHOCYTES % (MANUAL) 3 % (16-48); MONOCYTES % (MANUAL) 4 % (0-11.0); NEUTROPHILS % (MANUAL) 93 (42-76); PLATELET ESTIMATE ADEQUATE
[2024-01-14 06:35] LABS: ANISOCYTOSIS 1+
[2024-01-14 07:26] LABS: NUCLEATED RED BLOOD CELLS 0.1 /100WBC (0.0-0.0)
[2024-01-15] VITALS (41 sets, daily range): BP systolic 82–149; BP diastolic 60–94; TEMP 97.6–98.6; O2SAT 87–100
[2024-01-15] MEDS: LORAZEPAM 0.5 MG TABLET PO ONE
[2024-01-15 04:21] LABS: ABG OXYGEN SATURATION 89.5 % (92.0-98.5); ABG PCO2 36.6 mmHg (35.0-45.0); ABG PH 7.479 (7.350-7.450); ABG PO2 59.1 mmHg (75.0-100.0); ABG TOTAL HEMOGLOBIN 9.8 G/dL (12.0-16.0); AaDO2 617.3 mmHg; COHb 0.9 % (0.5-1.5); MetHb 0.3 % (0.0-1.5); O2Hb 88.4 % (94.0-97.0); SITE, ABG Right Brachial; VENT MODE, BG HFNC 40L 100% +NRB
[2024-01-15 05:02] LABS: BASOPHILS % (AUTO) 0.2 % (0.0-2.0); HEMATOCRIT 26 % (33-45); HEMOGLOBIN 8.4 g/dL (11.5-14.8); LYMPHOCYTES # (AUTO) 0.5 K/uL (0.8-4.8); LYMPHOCYTES % (AUTO) 2.3 % (20.0-44.0); MEAN CORPUSCULAR HEMOGLOBIN 20 PG (26.0-33.0); MEAN CORPUSCULAR HGB CONC 32 g/dl (31.0-36.0); MEAN CORPUSCULAR VOLUME 62 fL (82-100); MONOCYTES # (AUTO) 0.6 K/uL (0.1-1.30); MONOCYTES % (AUTO) 3.1 % (2.0-12.0); NEUTROPHILS % (AUTO) 94.4 % (43.0-81.0); PLATELET COUNT (AUTO) 282 K/uL (150-450); RED BLOOD CELL COUNT(AUTO) 4.18 MIL/uL (4.0-5.2); RED CELL DISTRIBUTION WIDTH 15.3 % (11.5-15.0); WHITE BLOOD COUNT (AUTO) 20.1 K/uL (4.3-11.0)
[2024-01-15 05:06] LABS: CALCIUM, SERUM 7.7 mg/dL (8.5-10.1); CREATININE 3.6 mg/dL (0.6-1.3); POTASSIUM 4.1 mmol/L (3.5-5.1)
[2024-01-15 15:34] LABS: ABG OXYGEN SATURATION 94.9 % (92.0-98.5); ABG PCO2 40.5 mmHg (35.0-45.0); ABG PH 7.403 (7.350-7.450); ABG PO2 83.5 mmHg (75.0-100.0); COHb 0.1 % (0.5-1.5); MetHb 0.3 % (0.0-1.5); O2Hb 94.5 % (94.0-97.0); SITE, ABG Right Radial; VENT MODE, BG BIPAP 16/12 R14 100%
[2024-01-15] MEDS: ALBUMIN 25% 25 GM in PREMIX 1 EA IV PRN (16:37)
[2024-01-15 19:06] LABS: ADENOVIRUS Not Detected (Not Detected); CORONAVIRUS 229E Not Detected (Not Detected); CORONAVIRUS HKU1 Not Detected (Not Detected); CORONAVIRUS NL63 Not Detected (Not Detected); CORONAVIRUS OC43 Not Detected (Not Detected); NP BORDETELLA PERTUSIS Not Detected (Not Detected); NP CHLAMYDOPHILA PNEUMONIAE Not Detected (Not Detected); NP HUMAN METAPNEUMOVIRUS Not Detected (Not Detected); NP HUMAN RHINO/ENTERO VIRUS Not Detected (Not Detected); NP INFLUENZA A Not Detected (Not Detected); NP INFLUENZA A/H1 Not Detected (Not Detected); NP INFLUENZA A/H1-2009 Not Detected (Not Detected); NP INFLUENZA A/H3 Not Detected (Not Detected); NP INFLUENZA B Not Detected (Not Detected); NP MYCOPLASMA PNEUMONIAE Not Detected (Not Detected); NP PARAINFLUENZA 1 Not Detected (Not Detected); NP PARAINFLUENZA 2 Not Detected (Not Detected); NP PARAINFLUENZA 3 Not Detected (Not Detected); NP PARAINFLUENZA 4 Not Detected (Not Detected); NP RESPIRATORY SYNCYTIAL VIRUS Not Detected (Not Detected)
[2024-01-15] MEDS ORDERED: AMIODARONE HCL 200 MG TABLET PO ONE (21:30)
[2024-01-15] MEDS: AMIODARONE HCL 200 MG TABLET PO ONE (21:42)
[2024-01-16] VITALS (47 sets, daily range): BP systolic 84–144; BP diastolic 59–87; TEMP 98.2–98.7; O2SAT 94–100
[2024-01-16 04:11] LABS: HEPATITIS B CORE AB, IgM Negative (Negative); HEPATITIS B CORE AB, TOTAL Negative (Negative)
[2024-01-16 04:49] LABS: BASOPHILS % (AUTO) 0.1 % (0.0-2.0); HEMATOCRIT 24 % (33-45); HEMOGLOBIN 7.5 g/dL (11.5-14.8); LYMPHOCYTES # (AUTO) 0.5 K/uL (0.8-4.8); LYMPHOCYTES % (AUTO) 1.5 % (20.0-44.0); MEAN CORPUSCULAR HEMOGLOBIN 19 PG (26.0-33.0); MEAN CORPUSCULAR HGB CONC 31 g/dl (31.0-36.0); MEAN CORPUSCULAR VOLUME 62 fL (82-100); MONOCYTES # (AUTO) 0.5 K/uL (0.1-1.30); MONOCYTES % (AUTO) 1.6 % (2.0-12.0); NEUTROPHILS % (AUTO) 96.8 % (43.0-81.0); PLATELET COUNT (AUTO) 205 K/uL (150-450); RED BLOOD CELL COUNT(AUTO) 3.88 MIL/uL (4.0-5.2); RED CELL DISTRIBUTION WIDTH 14.9 % (11.5-15.0)
[2024-01-16 05:06] LABS: CALCIUM, SERUM 8.4 mg/dL (8.5-10.1); CREATININE 2.6 mg/dL (0.6-1.3); POTASSIUM 3.7 mmol/L (3.5-5.1)
[2024-01-16 06:24] LABS: BAND % (MANUAL) 2 % (0.0-5.0); HYPOCHROMASIA 1+; LYMPHOCYTES % (MANUAL) 2 % (16-48); MONOCYTES % (MANUAL) 2 % (0-11.0); NEUTROPHILS % (MANUAL) 94 (42-76); PLATELET ESTIMATE ADEQUATE
[2024-01-16] MEDS: VANCOMYCIN HCL 125 MG/2.5 ML ORAL.SUSP PO SCH (17:50)
[2024-01-17] VITALS (39 sets, daily range): BP systolic 90–144; BP diastolic 53–87; TEMP 97.4–98.6; O2SAT 10–100
[2024-01-17 05:22] LABS: HEMATOCRIT 24 % (33-45); HEMOGLOBIN 7.5 g/dL (11.5-14.8); LYMPHOCYTES # (AUTO) 0.6 K/uL (0.8-4.8); LYMPHOCYTES % (AUTO) 2.3 % (20.0-44.0); MEAN CORPUSCULAR HEMOGLOBIN 20 PG (26.0-33.0); MEAN CORPUSCULAR HGB CONC 31 g/dl (31.0-36.0); MEAN CORPUSCULAR VOLUME 63 fL (82-100); MONOCYTES # (AUTO) 0.3 K/uL (0.1-1.30); MONOCYTES % (AUTO) 1.1 % (2.0-12.0); NEUTROPHILS # (AUTO) 24.7 K/uL (1.8-8.9); NEUTROPHILS % (AUTO) 96.6 % (43.0-81.0); PLATELET COUNT (AUTO) 216 K/uL (150-450); RED BLOOD CELL COUNT(AUTO) 3.83 MIL/uL (4.0-5.2); RED CELL DISTRIBUTION WIDTH 15.2 % (11.5-15.0); WHITE BLOOD COUNT (AUTO) 25.6 K/uL (4.3-11.0)
[2024-01-17 05:51] LABS: CALCIUM, SERUM 8.7 mg/dL (8.5-10.1); CREATININE 2.8 mg/dL (0.6-1.3); MAGNESIUM 2.3 mg/dL (1.8-2.4); PHOSPHORUS 5.4 mg/dL (2.5-4.9); POTASSIUM 3.7 mmol/L (3.5-5.1)
[2024-01-17 06:07] LABS: BAND % (MANUAL) 1 % (0.0-5.0)
[2024-01-17 06:08] LABS: LYMPHOCYTES % (MANUAL) 5 % (16-48); MONOCYTES % (MANUAL) 1 % (0-11.0)
[2024-01-17 06:09] LABS: ANISOCYTOSIS 1+; NEUTROPHILS % (MANUAL) 93 (42-76); PLATELET ESTIMATE ADEQUATE
[2024-01-17] MEDS: APIXABAN 5 MG TABLET PO SCH (09:13)
[2024-01-17] MEDS: DIGOXIN INJ 0.5 MG/2 ML AMPUL IV SCH (13:35)
[2024-01-17] MEDS ORDERED: ONDANSETRON HCL/PF 4 MG/2 ML VIAL IV PRN (21:00)
[2024-01-18] VITALS (50 sets, daily range): BP systolic 90–142; BP diastolic 47–85; TEMP 97.7–99; O2SAT 90–99
[2024-01-18 14:24] LABS: BASOPHILS % (AUTO) 0.2 % (0.0-2.0); HEMATOCRIT 23 % (33-45); HEMOGLOBIN 7.1 g/dL (11.5-14.8); LYMPHOCYTES # (AUTO) 0.3 K/uL (0.8-4.8); LYMPHOCYTES % (AUTO) 1.9 % (20.0-44.0); MEAN CORPUSCULAR HEMOGLOBIN 20 PG (26.0-33.0); MEAN CORPUSCULAR HGB CONC 31 g/dl (31.0-36.0); MEAN CORPUSCULAR VOLUME 63 fL (82-100); MONOCYTES # (AUTO) 0.3 K/uL (0.1-1.30); MONOCYTES % (AUTO) 1.6 % (2.0-12.0); NEUTROPHILS # (AUTO) 16.1 K/uL (1.8-8.9); NEUTROPHILS % (AUTO) 96.3 % (43.0-81.0); PLATELET COUNT (AUTO) 213 K/uL (150-450); RED BLOOD CELL COUNT(AUTO) 3.59 MIL/uL (4.0-5.2); WHITE BLOOD COUNT (AUTO) 16.7 K/uL (4.3-11.0)
[2024-01-18 14:43] LABS: CALCIUM, SERUM 8.5 mg/dL (8.5-10.1); CREATININE 3.2 mg/dL (0.6-1.3); POTASSIUM 3.8 mmol/L (3.5-5.1)
[2024-01-18 14:54] LABS: ALBUMIN 2.3 g/dL (3.4-5.0); BILIRUBIN,TOTAL 1.8 mg/dL (0.2-1.0)
[2024-01-19] VITALS (66 sets, daily range): BP systolic 87–126; BP diastolic 39–75; TEMP 97.8–98.1; O2SAT 85–99
[2024-01-19 09:28] LABS: BASOPHILS % (AUTO) 0.2 % (0.0-2.0); EOSINOPHILS % (AUTO) 0.1 % (0.0-6.0); HEMATOCRIT 24 % (33-45); HEMOGLOBIN 7.4 g/dL (11.5-14.8); LYMPHOCYTES # (AUTO) 0.5 K/uL (0.8-4.8); LYMPHOCYTES % (AUTO) 2.4 % (20.0-44.0); MEAN CORPUSCULAR HEMOGLOBIN 20 PG (26.0-33.0); MEAN CORPUSCULAR HGB CONC 32 g/dl (31.0-36.0); MEAN CORPUSCULAR VOLUME 64 fL (82-100); MONOCYTES # (AUTO) 0.4 K/uL (0.1-1.30); NEUTROPHILS # (AUTO) 20.1 K/uL (1.8-8.9); NEUTROPHILS % (AUTO) 95.3 % (43.0-81.0); PLATELET COUNT (AUTO) 194 K/uL (150-450); RED CELL DISTRIBUTION WIDTH 14.8 % (11.5-15.0)
[2024-01-19 09:34] LABS: CALCIUM, SERUM 8.8 mg/dL (8.5-10.1); CREATININE 2.8 mg/dL (0.6-1.3); POTASSIUM 3.9 mmol/L (3.5-5.1)
[2024-01-19] MEDS: methylPREDNISolone SOD SUCC 40 MG/ML VIAL IV SCH (13:20)
[2024-01-19] MEDS: SOD FERRIC GLUC 125 MG in IV NS 0.9% 100 ML IV SCH (14:37)
[2024-01-20] VITALS (44 sets, daily range): BP systolic 84–128; BP diastolic 41–108; TEMP 96.7–98; O2SAT 88–99
[2024-01-20 08:08] LABS: COMPLEMENT C3, SERUM 110 mg/dL (82-167); COMPLEMENT C4, SERUM 30 mg/dL (12-38)
[2024-01-20 09:10] LABS: *ANA ANTI-CENTROMERE B AB <0.2 AI (0.0-0.9); *ANA ANTI-DNA(DS) AB, QN <1 IU/mL (0-9); *ANA ANTI-JO-1 <0.2 AI (0.0-0.9); *ANA ANTICHROMATIN ANTIBODY <0.2 AI (0.0-0.9); *ANA RNP ANTIBODIES <0.2 AI (0.0-0.9); *ANA SJOGREN'S ANTI-SS-A <0.2 AI (0.0-0.9); *ANA SJOGREN'S ANTI-SS-B <0.2 AI (0.0-0.9); *ANAANTI-SCLERODERMA-70 AB <0.2 AI (0.0-0.9); *ANASMITH AB <0.2 AI (0.0-0.9)
[2024-01-20 11:36] LABS: BASOPHILS # (AUTO) 0.1 K/uL (0.0-0.2); BASOPHILS % (AUTO) 0.4 % (0.0-2.0); HEMATOCRIT 25 % (33-45); HEMOGLOBIN 7.8 g/dL (11.5-14.8); LYMPHOCYTES # (AUTO) 0.3 K/uL (0.8-4.8); LYMPHOCYTES % (AUTO) 2.1 % (20.0-44.0); MEAN CORPUSCULAR HEMOGLOBIN 20 PG (26.0-33.0); MEAN CORPUSCULAR HGB CONC 32 g/dl (31.0-36.0); MEAN CORPUSCULAR VOLUME 63 fL (82-100); MONOCYTES # (AUTO) 0.4 K/uL (0.1-1.30); MONOCYTES % (AUTO) 3.1 % (2.0-12.0); NEUTROPHILS # (AUTO) 13.2 K/uL (1.8-8.9); NEUTROPHILS % (AUTO) 94.4 % (43.0-81.0); PLATELET COUNT (AUTO) 196 K/uL (150-450); RED BLOOD CELL COUNT(AUTO) 3.89 MIL/uL (4.0-5.2); RED CELL DISTRIBUTION WIDTH 14.8 % (11.5-15.0)
[2024-01-20 11:46] LABS: CALCIUM, SERUM 8.5 mg/dL (8.5-10.1); CREATININE 3.4 mg/dL (0.6-1.3); POTASSIUM 3.9 mmol/L (3.5-5.1)
[2024-01-20] MEDS: MAGNESIUM HYDROXIDE 30 ML UDC PO PRN (16:55)
[2024-01-21] VITALS (64 sets, daily range): BP systolic 70–120; BP diastolic 49–92; TEMP 97.6–98.2; O2SAT 88–99
[2024-01-21 09:24] LABS: BASOPHILS % (AUTO) 0.1 % (0.0-2.0); HEMATOCRIT 25 % (33-45); LYMPHOCYTES # (AUTO) 0.4 K/uL (0.8-4.8); LYMPHOCYTES % (AUTO) 3.3 % (20.0-44.0); MEAN CORPUSCULAR HEMOGLOBIN 20 PG (26.0-33.0); MEAN CORPUSCULAR HGB CONC 31 g/dl (31.0-36.0); MEAN CORPUSCULAR VOLUME 64 fL (82-100); MONOCYTES # (AUTO) 0.8 K/uL (0.1-1.30); NEUTROPHILS # (AUTO) 11.8 K/uL (1.8-8.9); NEUTROPHILS % (AUTO) 90.6 % (43.0-81.0); PLATELET COUNT (AUTO) 202 K/uL (150-450); RED BLOOD CELL COUNT(AUTO) 3.98 MIL/uL (4.0-5.2); RED CELL DISTRIBUTION WIDTH 14.7 % (11.5-15.0)
[2024-01-21] MEDS: VIT B CMPLX 3/FA/VIT C/BIOTIN 1 TAB TABLET PO SCH (09:38)
[2024-01-21 09:51] LABS: CALCIUM, SERUM 8.8 mg/dL (8.5-10.1); CREATININE 4.6 mg/dL (0.6-1.3); POTASSIUM 4.5 mmol/L (3.5-5.1)
[2024-01-21] MEDS: IV NS 0.9% 250 ML IV PRN (21:51)
[2024-01-22] VITALS (53 sets, daily range): BP systolic 86–122; BP diastolic 53–95; TEMP 97–98; O2SAT 92–98
[2024-01-22] MEDS: CHOLECALCIFEROL 1,000 UNIT TABLET (VIT D3) PO SCH (08:27)
[2024-01-22 09:30] LABS: BASOPHILS % (AUTO) 0.1 % (0.0-2.0); HEMATOCRIT 26 % (33-45); HEMOGLOBIN 7.8 g/dL (11.5-14.8); LYMPHOCYTES # (AUTO) 0.5 K/uL (0.8-4.8); MEAN CORPUSCULAR HEMOGLOBIN 20 PG (26.0-33.0); MEAN CORPUSCULAR HGB CONC 31 g/dl (31.0-36.0); MEAN CORPUSCULAR VOLUME 64 fL (82-100); MONOCYTES # (AUTO) 0.7 K/uL (0.1-1.30); MONOCYTES % (AUTO) 4.7 % (2.0-12.0); NEUTROPHILS # (AUTO) 14.6 K/uL (1.8-8.9); NEUTROPHILS % (AUTO) 92.2 % (43.0-81.0); PLATELET COUNT (AUTO) 188 K/uL (150-450); RED BLOOD CELL COUNT(AUTO) 3.99 MIL/uL (4.0-5.2); RED CELL DISTRIBUTION WIDTH 14.8 % (11.5-15.0); WHITE BLOOD COUNT (AUTO) 15.8 K/uL (4.3-11.0)
[2024-01-22 09:41] LABS: CALCIUM, SERUM 9.2 mg/dL (8.5-10.1); CREATININE 3.9 mg/dL (0.6-1.3); POTASSIUM 4.2 mmol/L (3.5-5.1)
[2024-01-22] MEDS: methylPREDNISolone SOD SUCC 40 MG/ML VIAL IV SCH (10:33)
[2024-01-22] MEDS: MEROPENEM 500 MG in IV NS 0.9% 50 ML IV SCH (16:55)
[2024-01-23] VITALS (44 sets, daily range): BP systolic 86–108; BP diastolic 45–71; TEMP 97.4–98.4; O2SAT 92–99
[2024-01-23] MEDS ORDERED: NEPRO VAN 237 ML CAN PO PRN (09:30)
[2024-01-24] VITALS (97 sets, daily range): BP systolic 83–120; BP diastolic 45–93; TEMP 96.8–98.4; O2SAT 92–100
[2024-01-24] MEDS: PHENYLEPHRINE 100 MG in IV NS 0.9% 240 ML IV PRN (01:08)
[2024-01-24 04:45] LABS: BASOPHILS # (AUTO) 0.1 K/uL (0.0-0.2); BASOPHILS % (AUTO) 0.3 % (0.0-2.0); EOSINOPHILS # (AUTO) 0.6 K/uL (0.0-0.7); HEMATOCRIT 26 % (33-45); HEMOGLOBIN 7.8 g/dL (11.5-14.8); LYMPHOCYTES # (AUTO) 0.8 K/uL (0.8-4.8); LYMPHOCYTES % (AUTO) 2.8 % (20.0-44.0); MEAN CORPUSCULAR HEMOGLOBIN 20 PG (26.0-33.0); MEAN CORPUSCULAR HGB CONC 30 g/dl (31.0-36.0); MEAN CORPUSCULAR VOLUME 65 fL (82-100); MONOCYTES # (AUTO) 0.7 K/uL (0.1-1.30); MONOCYTES % (AUTO) 2.2 % (2.0-12.0); NEUTROPHILS # (AUTO) 27.9 K/uL (1.8-8.9); NEUTROPHILS % (AUTO) 92.7 % (43.0-81.0); PLATELET COUNT (AUTO) 163 K/uL (150-450); RED BLOOD CELL COUNT(AUTO) 3.96 MIL/uL (4.0-5.2); RED CELL DISTRIBUTION WIDTH 14.8 % (11.5-15.0)
[2024-01-24 05:30] LABS: CALCIUM, SERUM 9.8 mg/dL (8.5-10.1); CREATININE 3.6 mg/dL (0.6-1.3); POTASSIUM 3.6 mmol/L (3.5-5.1)
[2024-01-24 05:59] LABS: BAND % (MANUAL) 6 % (0.0-5.0); LYMPHOCYTES % (MANUAL) 6 % (16-48); NEUTROPHILS % (MANUAL) 85 (42-76)
[2024-01-24 06:00] LABS: ANISOCYTOSIS 2+; MONOCYTES % (MANUAL) 3 % (0-11.0); PLATELET ESTIMATE ADEQUATE
[2024-01-24] MEDS ORDERED: MEROPENEM 1 G in IV NS 0.9% 100 ML IV SCH (13:00)
[2024-01-24] MEDS: MEROPENEM 1 G in IV NS 0.9% 100 ML IV SCH (17:07)
[2024-01-24] MEDS: VANCOMYCIN HCL 125 MG/2.5 ML ORAL.SUSP PO SCH (17:52)
[2024-01-24] MEDS: VANCOMYCIN HCL 1.25 GM in IV D5W 250 ML IV ONE (17:52)
[2024-01-24] MEDS: METRONIDAZOLE 500MG/ NS 100ML 500 MG in PREMIX 1 EA IV SCH (20:53)
[2024-01-24] MEDS: SODIUM CL FOR INHALATION 3% 15 ML VIAL.NEB IH ONE (21:20)
[2024-01-25] VITALS (126 sets, daily range): BP systolic 68–128; BP diastolic 45–84; TEMP 97.8–98.6; O2SAT 91–100
[2024-01-25 04:53] LABS: BASOPHILS % (AUTO) 0.1 % (0.0-2.0); EOSINOPHILS # (AUTO) 0.6 K/uL (0.0-0.7); EOSINOPHILS % (AUTO) 2.8 % (0.0-6.0); HEMATOCRIT 33 % (33-45); HEMOGLOBIN 10.2 g/dL (11.5-14.8); LYMPHOCYTES # (AUTO) 0.5 K/uL (0.8-4.8); LYMPHOCYTES % (AUTO) 2.3 % (20.0-44.0); MEAN CORPUSCULAR HEMOGLOBIN 20 PG (26.0-33.0); MEAN CORPUSCULAR HGB CONC 31 g/dl (31.0-36.0); MEAN CORPUSCULAR VOLUME 65 fL (82-100); MONOCYTES # (AUTO) 0.4 K/uL (0.1-1.30); MONOCYTES % (AUTO) 1.7 % (2.0-12.0); NEUTROPHILS # (AUTO) 20.9 K/uL (1.8-8.9); NEUTROPHILS % (AUTO) 93.1 % (43.0-81.0); PLATELET COUNT (AUTO) 154 K/uL (150-450); RED BLOOD CELL COUNT(AUTO) 5.11 MIL/uL (4.0-5.2); RED CELL DISTRIBUTION WIDTH 14.9 % (11.5-15.0); WHITE BLOOD COUNT (AUTO) 22.4 K/uL (4.3-11.0)
[2024-01-25 05:33] LABS: CALCIUM, SERUM 9.8 mg/dL (8.5-10.1); CREATININE 4.8 mg/dL (0.6-1.3); POTASSIUM 3.7 mmol/L (3.5-5.1)
[2024-01-25 05:37] LABS: LACTIC ACID 1.1 mmol/L (0.4-2.0)
[2024-01-25 08:14] LABS: APPEARANCE,URINE TURBID (CLEAR); BILIRUBIN,URINE 2+ (NEGATIVE); BLOOD, URINE 3+ Ery/uL (NEGATIVE); COLOR,URINE DARK YELLOW (YELLOW); KETONES,URINE TRACE mg/dL (NEGATIVE); LEUKOCYTE ESTERASE ,URINE 2+ (NEGATIVE); NITRITE, URINE POSITIVE (NEGATIVE); PH,URINE 6.5 (5.0-8.0); PROTEIN,URINE 2+ mg/dl (NEGATIVE); UGLUCOSE TRACE mg/dL (NEGATIVE)
[2024-01-25 08:18] LABS: ADD URINE CULTURE YES; BACTERIA,URINE Moderate /HPF (None Seen); SQUAMOUS EPITHELIAL CELL,UR Rare /HPF (None Seen); WBC,URINE 51-80 /HPF (0-3)
[2024-01-25] MEDS: methylPREDNISolone SOD SUCC 40 MG/ML VIAL IV SCH (08:51)
[2024-01-25] MEDS: PANTOPRAZOLE 40 MG/PACK PACK GT SCH (12:53)
[2024-01-25] MEDS: AMIODARONE 150 MG in IV D5W 100 ML IV ONE (17:10)
[2024-01-25] MEDS: AMIODARONE 450 MG in IV D5W 241 ML IV PRN (17:12)
[2024-01-26] VITALS (110 sets, daily range): BP systolic 87–136; BP diastolic 44–96; TEMP 98.4–98.6; O2SAT 91–100
[2024-01-26] MEDS ORDERED: METOCLOPRAMIDE HCL 10 MG/2 ML VIAL IV SCH (06:00)
[2024-01-26 07:07] LABS: BASOPHILS # (AUTO) 0.3 K/uL (0.0-0.2); BASOPHILS % (AUTO) 0.9 % (0.0-2.0); EOSINOPHILS # (AUTO) 0.1 K/uL (0.0-0.7); EOSINOPHILS % (AUTO) 0.3 % (0.0-6.0); HEMATOCRIT 24 % (33-45); HEMOGLOBIN 7.1 g/dL (11.5-14.8); LYMPHOCYTES # (AUTO) 0.9 K/uL (0.8-4.8); LYMPHOCYTES % (AUTO) 2.5 % (20.0-44.0); MEAN CORPUSCULAR HEMOGLOBIN 19 PG (26.0-33.0); MEAN CORPUSCULAR HGB CONC 30 g/dl (31.0-36.0); MEAN CORPUSCULAR VOLUME 65 fL (82-100); MONOCYTES # (AUTO) 1.1 K/uL (0.1-1.30); MONOCYTES % (AUTO) 2.9 % (2.0-12.0); NEUTROPHILS # (AUTO) 34.9 K/uL (1.8-8.9); NEUTROPHILS % (AUTO) 93.4 % (43.0-81.0); PLATELET COUNT (AUTO) 220 K/uL (150-450); RED BLOOD CELL COUNT(AUTO) 3.67 MIL/uL (4.0-5.2); RED CELL DISTRIBUTION WIDTH 14.7 % (11.5-15.0)
[2024-01-26 07:25] LABS: CALCIUM, SERUM 8.3 mg/dL (8.5-10.1); CREATININE 3.6 mg/dL (0.6-1.3); MAGNESIUM 2.2 mg/dL (1.8-2.4); PHOSPHORUS 4.7 mg/dL (2.5-4.9); POTASSIUM 3.1 mmol/L (3.5-5.1); WHITE BLOOD COUNT (AUTO) 37.4 K/uL (4.3-11.0)
[2024-01-26] MEDS: NEPRO 1,000 ML BOTTLE GT PRN (08:39)
[2024-01-26] MEDS: NYSTATIN TOP POWDER 15 GM BOTTLE TP SCH (09:15)
[2024-01-26] MEDS: CLOTRIMAZOLE 1% 15 GM TUBE TP SCH (09:15)
[2024-01-26] MEDS: METOCLOPRAMIDE HCL 10 MG/2 ML VIAL IV SCH (09:37)
[2024-01-26 10:38] LABS: ANISOCYTOSIS 1+; BAND % (MANUAL) 1 % (0.0-5.0); BASOPHILS % (MANUAL) 0 % (0.0-2.0); EOSINOPHILS % (MANUAL) 0 % (0-4); HYPOCHROMASIA 1+; LYMPHOCYTES % (MANUAL) 6 % (16-48); MONOCYTES % (MANUAL) 4 % (0-11.0); NEUTROPHILS % (MANUAL) 89 (42-76); OVALOCYTES 1+; PLATELET ESTIMATE ADEQUATE
[2024-01-26] MEDS ORDERED: DOSE PER PHARMACY MICAFUNGIN 1 EA XX PRN (12:00)
[2024-01-26] MEDS: MICAFUNGIN SODIUM 100 MG in IV NS 0.9% 100 ML IV SCH (16:18)
[2024-01-27] VITALS (94 sets, daily range): BP systolic 84–131; BP diastolic 46–105; TEMP 97.9–98.6; O2SAT 89–98
[2024-01-27 04:45] LABS: BASOPHILS % (AUTO) 0.2 % (0.0-2.0); EOSINOPHILS # (AUTO) 0.7 K/uL (0.0-0.7); EOSINOPHILS % (AUTO) 2.4 % (0.0-6.0); HEMATOCRIT 22 % (33-45); LYMPHOCYTES # (AUTO) 1.1 K/uL (0.8-4.8); LYMPHOCYTES % (AUTO) 3.5 % (20.0-44.0); MEAN CORPUSCULAR HEMOGLOBIN 20 PG (26.0-33.0); MEAN CORPUSCULAR HGB CONC 31 g/dl (31.0-36.0); MEAN CORPUSCULAR VOLUME 66 fL (82-100); MONOCYTES % (AUTO) 3.1 % (2.0-12.0); NEUTROPHILS # (AUTO) 28.2 K/uL (1.8-8.9); NEUTROPHILS % (AUTO) 90.8 % (43.0-81.0); PLATELET COUNT (AUTO) 175 K/uL (150-450); RED CELL DISTRIBUTION WIDTH 15.4 % (11.5-15.0)
[2024-01-27 04:52] LABS: CALCIUM, SERUM 9.3 mg/dL (8.5-10.1); CREATININE 5.2 mg/dL (0.6-1.3); POTASSIUM 2.9 mmol/L (3.5-5.1)
[2024-01-27 05:18] LABS: HEMOGLOBIN 6.6 g/dL (11.5-14.8)
[2024-01-27 05:53] LABS: ANISOCYTOSIS 1+; BASOPHILS % (MANUAL) 0 % (0.0-2.0); EOSINOPHILS % (MANUAL) 2 % (0-4); HYPOCHROMASIA 1+; LYMPHOCYTES % (MANUAL) 6 % (16-48); MONOCYTES % (MANUAL) 5 % (0-11.0); NEUTROPHILS % (MANUAL) 87 (42-76); OVALOCYTES 1+; PLATELET ESTIMATE ADEQUATE
[2024-01-27 06:39] LABS: HEMOGLOBIN 6.9 g/dL (11.5-14.8)
[2024-01-27] MEDS: AMIODARONE HCL 200 MG TABLET NG SCH (09:20)
[2024-01-27] MEDS: DIGOXIN INJ 0.5 MG/2 ML AMPUL IV SCH (11:26)
[2024-01-27] MEDS: VANCOMYCIN POST DIALYSIS 500MG IV PRN (15:47)
[2024-01-27 23:38] LABS: OCCULT BLOOD STOOL POSITIVE (NEGATIVE)
[2024-01-28] VITALS (81 sets, daily range): BP systolic 93–145; BP diastolic 38–84; TEMP 97.9–99.3; O2SAT 94–100
[2024-01-28 04:37] LABS: CREATININE 3.8 mg/dL (0.6-1.3); POTASSIUM 3.4 mmol/L (3.5-5.1)
[2024-01-28 04:56] LABS: CALCIUM, SERUM 8.1 mg/dL (8.5-10.1)
[2024-01-28 06:44] LABS: BASOPHILS % (AUTO) 0.1 % (0.0-2.0); EOSINOPHILS # (AUTO) 0.5 K/uL (0.0-0.7); EOSINOPHILS % (AUTO) 1.8 % (0.0-6.0); HEMATOCRIT 28 % (33-45); HEMOGLOBIN 9.1 g/dL (11.5-14.8); LYMPHOCYTES # (AUTO) 1.5 K/uL (0.8-4.8); MEAN CORPUSCULAR HEMOGLOBIN 23 PG (26.0-33.0); MEAN CORPUSCULAR HGB CONC 32 g/dl (31.0-36.0); MEAN CORPUSCULAR VOLUME 72 fL (82-100); MONOCYTES # (AUTO) 0.8 K/uL (0.1-1.30); MONOCYTES % (AUTO) 2.8 % (2.0-12.0); NEUTROPHILS # (AUTO) 26.3 K/uL (1.8-8.9); NEUTROPHILS % (AUTO) 90.3 % (43.0-81.0); PLATELET COUNT (AUTO) 131 K/uL (150-450); RED BLOOD CELL COUNT(AUTO) 3.93 MIL/uL (4.0-5.2); RED CELL DISTRIBUTION WIDTH 24.7 % (11.5-15.0); WHITE BLOOD COUNT (AUTO) 29.1 K/uL (4.3-11.0)
[2024-01-28 10:37] LABS: EOSINOPHILS % (MANUAL) 4 % (0-4); LYMPHOCYTES % (MANUAL) 4 % (16-48); MONOCYTES % (MANUAL) 2 % (0-11.0); NEUTROPHILS % (MANUAL) 90 (42-76)
[2024-01-28 10:38] LABS: ANISOCYTOSIS 1+; PLATELET ESTIMATE DECREASED
[2024-01-29] VITALS (43 sets, daily range): BP systolic 73–154; BP diastolic 37–70; TEMP 97–98; O2SAT 89–100
[2024-01-29 06:02] LABS: BASOPHILS # (AUTO) 0.3 K/uL (0.0-0.2); BASOPHILS % (AUTO) 1.3 % (0.0-2.0); EOSINOPHILS # (AUTO) 0.7 K/uL (0.0-0.7); EOSINOPHILS % (AUTO) 3.5 % (0.0-6.0); HEMATOCRIT 26 % (33-45); HEMOGLOBIN 8.1 g/dL (11.5-14.8); LYMPHOCYTES # (AUTO) 0.8 K/uL (0.8-4.8); LYMPHOCYTES % (AUTO) 3.9 % (20.0-44.0); MEAN CORPUSCULAR HEMOGLOBIN 23 PG (26.0-33.0); MEAN CORPUSCULAR HGB CONC 32 g/dl (31.0-36.0); MEAN CORPUSCULAR VOLUME 73 fL (82-100); MONOCYTES # (AUTO) 0.6 K/uL (0.1-1.30); NEUTROPHILS # (AUTO) 18.9 K/uL (1.8-8.9); NEUTROPHILS % (AUTO) 88.3 % (43.0-81.0); PLATELET COUNT (AUTO) 109 K/uL (150-450); RED BLOOD CELL COUNT(AUTO) 3.54 MIL/uL (4.0-5.2); RED CELL DISTRIBUTION WIDTH 24.6 % (11.5-15.0); WHITE BLOOD COUNT (AUTO) 21.4 K/uL (4.3-11.0)
[2024-01-29 06:11] LABS: CALCIUM, SERUM 8.5 mg/dL (8.5-10.1); CREATININE 5.4 mg/dL (0.6-1.3); POTASSIUM 3.7 mmol/L (3.5-5.1)
[2024-01-29 06:23] LABS: INR 0.99 (0.91-1.10); PARTIAL THROMBOPLASTIN TIME 22.5 SEC (24.3-34.3); PROTHROMBIN TIME 10.5 SECS (9.2-11.1)
[2024-01-29] MEDS ORDERED: DC PROPOFOL WHEN EXTUBATED XX PRN ×2 (10:00→12:00)
[2024-01-29] MEDS: PANTOPRAZOLE 40 MG VIAL IV SCH (10:30)
[2024-01-29] MEDS ORDERED: PHENAZOPYRIDINE HCL 200 MG TABLET GT PRN (18:27)
[2024-01-29] MEDS ORDERED: MAG HYDROX/AL HYDROX/SIMETH 30 ML UDC GT PRN (18:27)
[2024-01-29] MEDS ORDERED: MAGNESIUM HYDROXIDE 30 ML UDC GT PRN (18:27)
[2024-01-29] MEDS ORDERED: ACETAMINOPHEN 650 MG/20.3 ML UDC GT PRN (18:30)
[2024-01-29] MEDS ORDERED: NEPRO 1,000 ML BOTTLE GT PRN (21:00)
[2024-01-29] MEDS: AMIODARONE HCL 200 MG TABLET NG SCH (21:12)
[2024-01-29] MEDS: ATORVASTATIN 40 MG TABLET GT SCH (21:13)
[2024-01-29] MEDS: APIXABAN 5 MG TABLET GT SCH (21:24)
[2024-01-29] MEDS: NEPRO 1,000 ML BOTTLE GT SCH (21:36)
[2024-01-30] VITALS (43 sets, daily range): BP systolic 92–142; BP diastolic 38–81; TEMP 97–98.5; O2SAT 94–100
[2024-01-30] MEDS: DILTIAZEM HCL 25 MG IV ONE (00:53)
[2024-01-30 03:55] LABS: BASOPHILS # (AUTO) 0.1 K/uL (0.0-0.2); BASOPHILS % (AUTO) 0.7 % (0.0-2.0); EOSINOPHILS # (AUTO) 0.5 K/uL (0.0-0.7); EOSINOPHILS % (AUTO) 3.2 % (0.0-6.0); HEMATOCRIT 23 % (33-45); HEMOGLOBIN 7.5 g/dL (11.5-14.8); LYMPHOCYTES # (AUTO) 0.5 K/uL (0.8-4.8); LYMPHOCYTES % (AUTO) 3.3 % (20.0-44.0); MEAN CORPUSCULAR HEMOGLOBIN 23 PG (26.0-33.0); MEAN CORPUSCULAR HGB CONC 32 g/dl (31.0-36.0); MEAN CORPUSCULAR VOLUME 73 fL (82-100); MONOCYTES # (AUTO) 0.4 K/uL (0.1-1.30); NEUTROPHILS % (AUTO) 89.8 % (43.0-81.0); PLATELET COUNT (AUTO) 95 K/uL (150-450); RED BLOOD CELL COUNT(AUTO) 3.21 MIL/uL (4.0-5.2); RED CELL DISTRIBUTION WIDTH 24.4 % (11.5-15.0); WHITE BLOOD COUNT (AUTO) 14.5 K/uL (4.3-11.0)
[2024-01-30 04:03] LABS: CALCIUM, SERUM 9.1 mg/dL (8.5-10.1); CREATININE 3.5 mg/dL (0.6-1.3); POTASSIUM 3.1 mmol/L (3.5-5.1)
[2024-01-30] MEDS ORDERED: IPRATROPIUM NEB FS 0.5 MG/2.5 ML AMPUL.NEB NEB PRN (08:00)
[2024-01-30 08:04] LABS: ANISOCYTOSIS 1+; BASOPHILS % (MANUAL) 0 % (0.0-2.0); EOSINOPHILS % (MANUAL) 2 % (0-4); HYPOCHROMASIA 1+; LYMPHOCYTES % (MANUAL) 8 % (16-48); MONOCYTES % (MANUAL) 5 % (0-11.0); NEUTROPHILS % (MANUAL) 85 (42-76); OVALOCYTES 1+; PLATELET ESTIMATE DECREASED
[2024-01-30] MEDS: LORATADINE 10 MG TABLET GT SCH (09:01)
[2024-01-30] MEDS: ASPIRIN 81 MG TAB.CHEW GT SCH (09:01)
[2024-01-30] MEDS: VIT B CMPLX 3/FA/VIT C/BIOTIN 1 TAB TABLET GT SCH (09:02)
[2024-01-30] MEDS: ASCORBIC ACID 500 MG TABLET GT SCH (09:03)
[2024-01-30] MEDS: CHOLECALCIFEROL 1,000 UNIT TABLET (VIT D3) GT SCH (09:03)
[2024-01-31] VITALS (26 sets, daily range): BP systolic 94–130; BP diastolic 37–55; TEMP 98.2–98.8; O2SAT 94–100
[2024-01-31 04:56] LABS: BASOPHILS % (AUTO) 0.2 % (0.0-2.0); EOSINOPHILS # (AUTO) 0.5 K/uL (0.0-0.7); EOSINOPHILS % (AUTO) 4.2 % (0.0-6.0); HEMATOCRIT 23 % (33-45); HEMOGLOBIN 7.4 g/dL (11.5-14.8); LYMPHOCYTES # (AUTO) 0.5 K/uL (0.8-4.8); MEAN CORPUSCULAR HEMOGLOBIN 24 PG (26.0-33.0); MEAN CORPUSCULAR HGB CONC 32 g/dl (31.0-36.0); MEAN CORPUSCULAR VOLUME 75 fL (82-100); MONOCYTES # (AUTO) 0.4 K/uL (0.1-1.30); MONOCYTES % (AUTO) 3.3 % (2.0-12.0); NEUTROPHILS # (AUTO) 11.1 K/uL (1.8-8.9); NEUTROPHILS % (AUTO) 88.3 % (43.0-81.0); PLATELET COUNT (AUTO) 95 K/uL (150-450); RED BLOOD CELL COUNT(AUTO) 3.14 MIL/uL (4.0-5.2); RED CELL DISTRIBUTION WIDTH 26.7 % (11.5-15.0); WHITE BLOOD COUNT (AUTO) 12.5 K/uL (4.3-11.0)
[2024-01-31 05:10] LABS: CALCIUM, SERUM 8.8 mg/dL (8.5-10.1)
[2024-01-31 05:24] LABS: POTASSIUM 2.8 mmol/L (3.5-5.1)
[2024-01-31] MEDS: PANTOPRAZOLE 40 MG/PACK PACK NG SCH (09:00)
[2024-01-31] MEDS: POTASSIUM CHLORIDE 20 MEQ POWDER PACKET GT ONE (11:17)
[2024-01-31] MEDS ORDERED: FLUOXETINE HCL 20 MG/5 ML UDC GT SCH (13:30)
[2024-01-31] MEDS: MIRTAZAPINE 15 MG TABLET GT SCH (21:14)
[2024-02-01] VITALS (50 sets, daily range): BP systolic 102–133; BP diastolic 43–67; TEMP 98–98.6; O2SAT 93–99
[2024-02-01] MEDS: diphenhydrAMINE HCL 50 MG/ML VIAL IV PRN (04:58)
[2024-02-01 07:39] LABS: BASOPHILS % (AUTO) 0.2 % (0.0-2.0); EOSINOPHILS # (AUTO) 0.8 K/uL (0.0-0.7); EOSINOPHILS % (AUTO) 7.4 % (0.0-6.0); HEMATOCRIT 21 % (33-45); LYMPHOCYTES # (AUTO) 0.6 K/uL (0.8-4.8); LYMPHOCYTES % (AUTO) 5.1 % (20.0-44.0); MEAN CORPUSCULAR HEMOGLOBIN 24 PG (26.0-33.0); MEAN CORPUSCULAR HGB CONC 32 g/dl (31.0-36.0); MEAN CORPUSCULAR VOLUME 74 fL (82-100); MONOCYTES # (AUTO) 0.4 K/uL (0.1-1.30); MONOCYTES % (AUTO) 3.3 % (2.0-12.0); NEUTROPHILS # (AUTO) 9.3 K/uL (1.8-8.9); PLATELET COUNT (AUTO) 93 K/uL (150-450); RED BLOOD CELL COUNT(AUTO) 2.83 MIL/uL (4.0-5.2); RED CELL DISTRIBUTION WIDTH 26.8 % (11.5-15.0); WHITE BLOOD COUNT (AUTO) 11.1 K/uL (4.3-11.0)
[2024-02-01 07:46] LABS: HEMOGLOBIN 6.7 g/dL (11.5-14.8)
[2024-02-01 07:54] LABS: CALCIUM, SERUM 8.9 mg/dL (8.5-10.1); CREATININE 4.8 mg/dL (0.6-1.3); POTASSIUM 3.4 mmol/L (3.5-5.1)
[2024-02-01] MEDS ORDERED: POTASSIUM CHLORIDE 20 MEQ POWDER PACKET PO ONE (09:00)
[2024-02-01] MEDS: POTASSIUM CHLORIDE 20 MEQ POWDER PACKET GT ONE (09:02)
[2024-02-01] MEDS: FLUOXETINE HCL 20 MG CAPSULE GT SCH (12:43)
[2024-02-01 13:08] LABS: ANISOCYTOSIS 1+; BASOPHILS % (MANUAL) 0 % (0.0-2.0); EOSINOPHILS % (MANUAL) 6 % (0-4); HYPOCHROMASIA 1+; LYMPHOCYTES % (MANUAL) 7 % (16-48); MONOCYTES % (MANUAL) 4 % (0-11.0); NEUTROPHILS % (MANUAL) 83 (42-76); OVALOCYTES 1+; PLATELET ESTIMATE DECREASED
[2024-02-01] MEDS: GUAIFENESIN/CODEINE 10 ML UDC GT PRN (22:02)
[2024-02-01] MEDS ORDERED: GELATIN SPONGE,ABSORBABLE 1 SPONGE SPONGE TP ONE (22:19)
[2024-02-01] MEDS: CELLULOSE,OXIDIZED 1 PKT EACH MC ONE (23:49)
[2024-02-02] VITALS (30 sets, daily range): BP systolic 110–131; BP diastolic 48–61; TEMP 98–98.5; O2SAT 91–99
[2024-02-02 04:49] LABS: BASOPHILS # (AUTO) 0.1 K/uL (0.0-0.2); BASOPHILS % (AUTO) 1.3 % (0.0-2.0); EOSINOPHILS # (AUTO) 0.9 K/uL (0.0-0.7); EOSINOPHILS % (AUTO) 7.9 % (0.0-6.0); HEMATOCRIT 29 % (33-45); HEMOGLOBIN 9.6 g/dL (11.5-14.8); LYMPHOCYTES # (AUTO) 0.5 K/uL (0.8-4.8); LYMPHOCYTES % (AUTO) 4.4 % (20.0-44.0); MEAN CORPUSCULAR HEMOGLOBIN 26 PG (26.0-33.0); MEAN CORPUSCULAR HGB CONC 34 g/dl (31.0-36.0); MEAN CORPUSCULAR VOLUME 76 fL (82-100); MONOCYTES # (AUTO) 0.5 K/uL (0.1-1.30); MONOCYTES % (AUTO) 4.2 % (2.0-12.0); NEUTROPHILS # (AUTO) 8.8 K/uL (1.8-8.9); NEUTROPHILS % (AUTO) 82.2 % (43.0-81.0); PLATELET COUNT (AUTO) 78 K/uL (150-450); RED BLOOD CELL COUNT(AUTO) 3.76 MIL/uL (4.0-5.2); RED CELL DISTRIBUTION WIDTH 25.5 % (11.5-15.0); WHITE BLOOD COUNT (AUTO) 10.7 K/uL (4.3-11.0)
[2024-02-02 04:56] LABS: CALCIUM, SERUM 9.1 mg/dL (8.5-10.1); CREATININE 3.2 mg/dL (0.6-1.3); POTASSIUM 3.7 mmol/L (3.5-5.1)
[2024-02-02 06:17] LABS: BASOPHILS % (MANUAL) 0 % (0.0-2.0); EOSINOPHILS % (MANUAL) 9 % (0-4); HYPOCHROMASIA 1+; LYMPHOCYTES % (MANUAL) 6 % (16-48); MONOCYTES % (MANUAL) 5 % (0-11.0); NEUTROPHILS % (MANUAL) 80 (42-76); PLATELET ESTIMATE DECREASED
[2024-02-02 06:18] LABS: ANISOCYTOSIS 1+; OVALOCYTES 1+
[2024-02-02] MEDS: hydrOXYzine PAMOATE 25 MG CAPSULE PO PRN (13:31)
[2024-02-02] MEDS: HYDROCORTISONE 2.5% CREAM 28.4 GM TUBE TP SCH (17:42)
[2024-02-03] VITALS (32 sets, daily range): BP systolic 101–118; BP diastolic 41–53; TEMP 97.7–98.8; O2SAT 78–100
[2024-02-03 08:33] LABS: BASOPHILS # (AUTO) 0.1 K/uL (0.0-0.2); BASOPHILS % (AUTO) 0.6 % (0.0-2.0); EOSINOPHILS # (AUTO) 0.8 K/uL (0.0-0.7); EOSINOPHILS % (AUTO) 8.2 % (0.0-6.0); HEMATOCRIT 24 % (33-45); HEMOGLOBIN 7.8 g/dL (11.5-14.8); LYMPHOCYTES # (AUTO) 0.4 K/uL (0.8-4.8); LYMPHOCYTES % (AUTO) 3.9 % (20.0-44.0); MEAN CORPUSCULAR HEMOGLOBIN 25 PG (26.0-33.0); MEAN CORPUSCULAR HGB CONC 32 g/dl (31.0-36.0); MEAN CORPUSCULAR VOLUME 76 fL (82-100); MONOCYTES # (AUTO) 0.5 K/uL (0.1-1.30); MONOCYTES % (AUTO) 4.8 % (2.0-12.0); NEUTROPHILS # (AUTO) 8.2 K/uL (1.8-8.9); NEUTROPHILS % (AUTO) 82.5 % (43.0-81.0); PLATELET COUNT (AUTO) 91 K/uL (150-450); RED BLOOD CELL COUNT(AUTO) 3.19 MIL/uL (4.0-5.2); RED CELL DISTRIBUTION WIDTH 25.8 % (11.5-15.0)
[2024-02-03 09:01] LABS: CALCIUM, SERUM 8.6 mg/dL (8.5-10.1); CREATININE 4.5 mg/dL (0.6-1.3); POTASSIUM 3.4 mmol/L (3.5-5.1)
[2024-02-03 11:47] LABS: ANISOCYTOSIS 1+; BAND % (MANUAL) 2 % (0.0-5.0); EOSINOPHILS % (MANUAL) 5 % (0-4); LYMPHOCYTES % (MANUAL) 3 % (16-48); MONOCYTES % (MANUAL) 3 % (0-11.0); NEUTROPHILS % (MANUAL) 87 (42-76); PLATELET ESTIMATE DECREASED
[2024-02-03 18:06] LABS: HEMOGLOBIN 9.2 g/dL (11.5-14.8)
[2024-02-03] MEDS: HYDROCODONE/APAP 5/325MG TABLET GT PRN (21:02)
[2024-02-04] VITALS (27 sets, daily range): BP systolic 104–130; BP diastolic 43–69; TEMP 97.9–98.6; O2SAT 90–97
[2024-02-04] MEDS: NEPRO 1,000 ML BOTTLE GT SCH (00:30)
[2024-02-04 07:47] LABS: BASOPHILS % (AUTO) 0.4 % (0.0-2.0); EOSINOPHILS # (AUTO) 0.8 K/uL (0.0-0.7); EOSINOPHILS % (AUTO) 10.2 % (0.0-6.0); HEMATOCRIT 28 % (33-45); HEMOGLOBIN 9.1 g/dL (11.5-14.8); LYMPHOCYTES # (AUTO) 0.4 K/uL (0.8-4.8); LYMPHOCYTES % (AUTO) 5.5 % (20.0-44.0); MEAN CORPUSCULAR HEMOGLOBIN 25 PG (26.0-33.0); MEAN CORPUSCULAR HGB CONC 32 g/dl (31.0-36.0); MEAN CORPUSCULAR VOLUME 76 fL (82-100); MONOCYTES # (AUTO) 0.4 K/uL (0.1-1.30); MONOCYTES % (AUTO) 5.1 % (2.0-12.0); NEUTROPHILS # (AUTO) 6.4 K/uL (1.8-8.9); NEUTROPHILS % (AUTO) 78.8 % (43.0-81.0); PLATELET COUNT (AUTO) 97 K/uL (150-450); RED CELL DISTRIBUTION WIDTH 26.7 % (11.5-15.0); WHITE BLOOD COUNT (AUTO) 8.1 K/uL (4.3-11.0)
[2024-02-04] MEDS: TRIAMCINOLONE ACETONIDE 0.1% CR 15 GM TUBE TP PRN (08:19)
[2024-02-04 08:29] LABS: CREATININE 3.4 mg/dL (0.6-1.3); POTASSIUM 3.5 mmol/L (3.5-5.1)
[2024-02-04 10:58] LABS: BAND % (MANUAL) 3 % (0.0-5.0); EOSINOPHILS % (MANUAL) 13 % (0-4); LYMPHOCYTES % (MANUAL) 7 % (16-48); MONOCYTES % (MANUAL) 4 % (0-11.0); NEUTROPHILS % (MANUAL) 73 (42-76); PLATELET ESTIMATE DECREASED
[2024-02-04 10:59] LABS: ANISOCYTOSIS 1+; HYPOCHROMASIA 1+
[2024-02-05] VITALS (55 sets, daily range): BP systolic 99–126; BP diastolic 40–54; TEMP 97.5–97.7; O2SAT 92–98
[2024-02-05 05:05] LABS: BASOPHILS % (AUTO) 0.1 % (0.0-2.0); HEMATOCRIT 25 % (33-45); HEMOGLOBIN 8.2 g/dL (11.5-14.8); LYMPHOCYTES # (AUTO) 0.5 K/uL (0.8-4.8); LYMPHOCYTES % (AUTO) 6.4 % (20.0-44.0); MEAN CORPUSCULAR HEMOGLOBIN 24 PG (26.0-33.0); MEAN CORPUSCULAR HGB CONC 32 g/dl (31.0-36.0); MEAN CORPUSCULAR VOLUME 76 fL (82-100); MONOCYTES # (AUTO) 0.6 K/uL (0.1-1.30); MONOCYTES % (AUTO) 8.8 % (2.0-12.0); NEUTROPHILS # (AUTO) 5.2 K/uL (1.8-8.9); NEUTROPHILS % (AUTO) 70.7 % (43.0-81.0); PLATELET COUNT (AUTO) 110 K/uL (150-450); RED BLOOD CELL COUNT(AUTO) 3.36 MIL/uL (4.0-5.2); RED CELL DISTRIBUTION WIDTH 25.7 % (11.5-15.0); WHITE BLOOD COUNT (AUTO) 7.3 K/uL (4.3-11.0)
[2024-02-05 05:13] LABS: CALCIUM, SERUM 8.8 mg/dL (8.5-10.1); CREATININE 4.3 mg/dL (0.6-1.3); POTASSIUM 3.4 mmol/L (3.5-5.1)
[2024-02-05] MEDS ORDERED: INSU100V28 SQ (08:40)
[2024-02-05] MEDS ORDERED: Nepro GT (08:40)
[2024-02-05] MEDS ORDERED: ASCO500T21 GT (08:40)
[2024-02-05] MEDS ORDERED: CLOT15CR35 TP (08:40)
[2024-02-05] MEDS ORDERED: MIRT-121 GT (08:40)
[2024-02-05] MEDS ORDERED: AMIO200T7 GT (08:40)
[2024-02-05] MEDS ORDERED: MAGN400O6 GT (08:40)
[2024-02-05] MEDS ORDERED: HYDR-3895 PO (08:40)
[2024-02-05] MEDS ORDERED: APIX5TAB GT (08:40)
[2024-02-05] MEDS ORDERED: TRIA80CR12 TP (08:40)
[2024-02-05] MEDS ORDERED: PANT40SU2 NG (08:40)
[2024-02-05] MEDS ORDERED: FLUO20CA36 GT (08:40)
[2024-02-05] MEDS ORDERED: MICA100V IV (08:40)
[2024-02-05] MEDS: methylPREDNISolone SOD SUCC 40 MG/ML VIAL IV SCH (09:35)
[2024-02-05] MEDS ORDERED: OLANZAPINE 2.5 MG TABLET PO PRN (12:00)
[2024-02-05] MEDS: AMIODARONE HCL 200 MG TABLET GT SCH (16:04)
== END 2024-02-05 21:15 | DRG 871 ==
LOC: ER 12:33 → TELE 14:40 → TELE1 01-09 14:35 → TELE-TD 01-09 14:45 → ICU 01-11 09:35
PROVIDERS: ADMIT Student in an Organized Health Care Education/Training Program; ATTEND Internal Medicine
PROC: 05HF33Z Insertion of Infusion Device into Left Cephalic Vein, Percutaneous Approach (ICD-10-PCS; principal; 2024-01-08)
PROC: 5A09357 Assistance with Respiratory Ventilation, Less than 24 Consecutive Hours, Continuous Positive Airway Pressure (ICD-10-PCS; 2024-01-12)
PROC: 5A1D70Z Performance of Urinary Filtration, Intermittent, Less than 6 Hours Per Day (ICD-10-PCS; 2024-01-12)
PROC: 0JH63XZ Insertion of Tunneled Vascular Access Device into Chest Subcutaneous Tissue and Fascia, Percutaneous Approach (ICD-10-PCS; 2024-01-12)
PROC: 05HM33Z Insertion of Infusion Device into Right Internal Jugular Vein, Percutaneous Approach (ICD-10-PCS; 2024-01-12)
PROC: B543ZZA Ultrasonography of Right Jugular Veins, Guidance (ICD-10-PCS; 2024-01-12)
PROC: 5A09457 Assistance with Respiratory Ventilation, 24-96 Consecutive Hours, Continuous Positive Airway Pressure (ICD-10-PCS; 2024-01-15)
PROC: 02HV33Z Insertion of Infusion Device into Superior Vena Cava, Percutaneous Approach (ICD-10-PCS; 2024-01-17)
PROC: B548ZZA Ultrasonography of Superior Vena Cava, Guidance (ICD-10-PCS; 2024-01-17)
PROC: 30233N1 Transfusion of Nonautologous Red Blood Cells into Peripheral Vein, Percutaneous Approach (ICD-10-PCS; 2024-01-27)
PROC: 0DH63UZ Insertion of Feeding Device into Stomach, Percutaneous Approach (ICD-10-PCS; 2024-01-29)
PROC: 5A2204Z Restoration of Cardiac Rhythm, Single (ICD-10-PCS; 2024-01-29)
PROC: B246ZZ4 Ultrasonography of Right and Left Heart, Transesophageal (ICD-10-PCS; 2024-01-29)
DX: A41.9 Sepsis, unspecified organism (principal); B37.1 Pulmonary candidiasis; G92.8 Other toxic encephalopathy; I21.A1 Myocardial infarction type 2; J15.69 Pneumonia due to other Gram-negative bacteria; I50.33 Acute on chronic diastolic (congestive) heart failure; R65.21 Severe sepsis with septic shock; N17.0 Acute kidney failure with tubular necrosis; J96.01 Acute respiratory failure with hypoxia; E44.0 Moderate protein-calorie malnutrition; N39.0 Urinary tract infection, site not specified; D62 Acute posthemorrhagic anemia; D68.59 Other primary thrombophilia; I48.92 Unspecified atrial flutter; J81.1 Chronic pulmonary edema; J90 Pleural effusion, not elsewhere classified; E87.1 Hypo-osmolality and hyponatremia; E87.20 Acidosis, unspecified; J98.11 Atelectasis; I11.0 Hypertensive heart disease with heart failure; K29.70 Gastritis, unspecified, without bleeding; E78.5 Hyperlipidemia, unspecified; Z90.49 Acquired absence of other specified parts of digestive tract; Z99.2 Dependence on renal dialysis; Z98.891 History of uterine scar from previous surgery; Z91.041 Radiographic dye allergy status; Z79.82 Long term (current) use of aspirin; Z79.899 Other long term (current) drug therapy; D63.8 Anemia in other chronic diseases classified elsewhere; D69.6 Thrombocytopenia, unspecified; E11.9 Type 2 diabetes mellitus without complications; E66.01 Morbid (severe) obesity due to excess calories; G47.33 Obstructive sleep apnea (adult) (pediatric); R74.01 Elevation of levels of liver transaminase levels; M76.61 Achilles tendinitis, right leg; M72.2 Plantar fascial fibromatosis; M76.72 Peroneal tendinitis, left leg; I48.0 Paroxysmal atrial fibrillation; J98.01 Acute bronchospasm; F32.9 Major depressive disorder, single episode, unspecified; K57.30 Diverticulosis of large intestine without perforation or abscess without bleeding; K80.20 Calculus of gallbladder without cholecystitis without obstruction; L29.9 Pruritus, unspecified; R13.10 Dysphagia, unspecified; R56.9 Unspecified convulsions; R62.7 Adult failure to thrive; Z87.440 Personal history of urinary (tract) infections; Z91.199 Patient's noncompliance with other medical treatment and regimen due to unspecified reason; Z86.19 Personal history of other infectious and parasitic diseases; Z74.09 Other reduced mobility
CPT/HCPCS: 36410; 36415; 36569; 36600; 43246; 70450-TC; 71045-TC; 71250-TC; 73630-TC; 74018; 76770-TC; 80048-TC; 80053-TC; 80061-TC; 80076-TC; 80202-TC; 81001; 82140-TC; 82272-TC; 82570-TC; 82607-TC; 82728-TC; 82803-TC; 82962-TC; 83540-TC; 83605-TC; 83735-TC; 83880; 84100-TC; 84155; 84165; 84300-TC; 84439-TC; 84443-TC; 84484-TC; 85025-TC; 85027-TC; 85652-TC; 85730-TC; 86140-TC; 86225; 86235; 86704; 86705; 86706; 86713; 86803; 86850-TC; 87040-TC; 87081-TC; 87086-TC; 87102-TC; 87340; 87806; 90935-TC; 92526; 92611-TC; 93307-TC; 93312-TC; 93970-TC; 94002-TC; 94640-TC; 94660; 94760-TC; 94761-TC; 94762-TC; 94799-TC; 97110-TC; 97112-TC; 97530-TC; A4216; A4217; A4218; A4223; A4349; A6403; C9113; G0378; J0282; J0330; J0696; J1160; J1200; J1644; J1815; J1885; J1940; J2020; J2185; J2248; J2270; J2405; J2704; J2765; J2916; J2919; J3370; J3490; J7030; J7040; J7050; J7060; P9016; P9047; Q0177

== ENCOUNTER 2024-10-02 08:10 | Outpatient (CLI) | payer BC, OTHER ==
[~2024-10-02 08:10] MED LIST changes: +AMIO200T7 GT; +APIX5TAB GT; +ASCO100058 PO; +ASCO500T21 GT; +ASPI-1169 PO; +ATOR40TA PO; -CEPH500C2 PO; +CHOL100062 PO; +CLOT15CR35 TP; -CYCL5TAB PO; -FEXO180T PO; +FLUO20CA36 GT; +HYDR-3895 PO; -HYDR25TA4 PO; -IBUP-1955 PO; +INSU100V28 SQ; -LEVO500T90 PO; -LORA10CA PO; +MAGN400O6 GT; +MICA100V IV; +MIRT-121 GT; -NAPR-1009 PO; +Nepro GT; +PANT40SU2 NG; +TRIA80CR12 TP
[2024-10-02 09:38] LABS: APPEARANCE,URINE CLEAR (CLEAR); BASOPHILS % (AUTO) 0.6 % (0.0-2.0); BILIRUBIN,URINE NEGATIVE (NEGATIVE); BLOOD, URINE NEGATIVE Ery/uL (NEGATIVE); COLOR,URINE YELLOW (YELLOW); EOSINOPHILS # (AUTO) 0.3 K/uL (0.0-0.7); EOSINOPHILS % (AUTO) 3.5 % (0.0-6.0); HEMATOCRIT 41 % (33-45); HEMOGLOBIN 12.7 g/dL (11.5-14.8); KETONES,URINE NEGATIVE (NEGATIVE); LEUKOCYTE ESTERASE ,URINE NEGATIVE (NEGATIVE); LYMPHOCYTES # (AUTO) 2.1 K/uL (0.8-4.8); LYMPHOCYTES % (AUTO) 28.3 % (20.0-44.0); MEAN CORPUSCULAR HEMOGLOBIN 22 PG (26.0-33.0); MEAN CORPUSCULAR HGB CONC 31 g/dl (31.0-36.0); MEAN CORPUSCULAR VOLUME 70 fL (82-100); MONOCYTES # (AUTO) 0.5 K/uL (0.1-1.30); MONOCYTES % (AUTO) 6.7 % (2.0-12.0); NEUTROPHILS # (AUTO) 4.5 K/uL (1.8-8.9); NEUTROPHILS % (AUTO) 60.9 % (43.0-81.0); NITRITE, URINE NEGATIVE (NEGATIVE); PH,URINE 6.5 (5.0-8.0); PLATELET COUNT (AUTO) 167 K/uL (150-450); PROTEIN,URINE 1+ mg/dl (NEGATIVE); RED BLOOD CELL COUNT(AUTO) 5.84 MIL/uL (4.0-5.2); RED CELL DISTRIBUTION WIDTH 15.1 % (11.5-15.0); UGLUCOSE NEGATIVE (NEGATIVE); UROBILINOGEN,URINE 0.2 EU/dL (0.2); WHITE BLOOD COUNT (AUTO) 7.4 K/uL (4.3-11.0)
[2024-10-02 09:39] LABS: FREE T4 (FREE THYROXINE) 0.6 ng/dL (0.76-1.46); THYROID STIMULATING HORMONE 18.85 uIU/mL (0.358-3.74)
[2024-10-02 09:42] LABS: ADD URINE CULTURE YES; BACTERIA,URINE Many /HPF (None Seen); RBC,URINE 0-2 /HPF (0-2); SQUAMOUS EPITHELIAL CELL,UR Few /HPF (None Seen)
[2024-10-02 12:04] LABS: ALBUMIN 3.8 g/dL (3.4-5.0); BILIRUBIN,TOTAL 0.6 mg/dL (0.2-1.0); CREATININE 1.3 mg/dL (0.6-1.3); MAGNESIUM 2.3 mg/dL (1.8-2.4); PHOSPHORUS 4.6 mg/dL (2.5-4.9); POTASSIUM 4.4 mmol/L (3.5-5.1); TOTAL PROTEIN, SERUM 7.6 g/dL (6.4-8.2)
== END 2024-10-02 23:59 | disposition home or self-care (01) ==
LOC: LAB 08:10
PROVIDERS: ATTEND Legal Medicine
DX: I12.9 Hypertensive chronic kidney disease with stage 1 through stage 4 chronic kidney disease, or unspecified chronic kidney disease (principal); E11.9 Type 2 diabetes mellitus without complications; Z00.00 Encounter for general adult medical examination without abnormal findings; R53.1 Weakness; E78.5 Hyperlipidemia, unspecified; N18.9 Chronic kidney disease, unspecified; E11.22 Type 2 diabetes mellitus with diabetic chronic kidney disease; E03.9 Hypothyroidism, unspecified; E55.9 Vitamin D deficiency, unspecified
CPT/HCPCS: 36415; 80053-TC; 80061-TC; 81001; 82306; 82728-TC; 83735-TC; 84100-TC; 84439-TC; 84443-TC; 85025-TC; 87086-TC